=== PATIENT | male | born 1950 | race African-American/Black ===

== ENCOUNTER 2016-09-10 05:33 | Emergency (ER) | payer OTHER ==
[2016-09-10] MEDS ORDERED: oxyCODONE/Acetamin 5/325 MG* TAB PO ONE (06:45)
--- NOTE | 2016-09-10 06:45 | ED ---
Valentín Grant Janilya, scribed for Gaby Sage MD on 09/10/16 at 0555 . Lower Extremity - HPI Summary HPI Summary: A 66 y/[facility] w/ a gradual onset of constant hip pain starting couple months ago. Pt states he did have back pain which was spontaneously resolved. However, the hip pain persisted and started radiating to the legs. Also the pain started worsening couple weeks ago. This morning the pain was at its worst, hence his visit to the ED today. Severity rated 10/10. Pt denies fever, chills. PMHx stents. - History of Current Complaint Chief Complaint: EDHipPelvisInjury Stated Complaint: RIGHT HIP AND LEG PAIN Hx Obtained From: Patient Onset of Pain: Days Onset/Duration: Still Present Severity Initially: Moderate Severity Currently: Moderate Pain Intensity: 2 Pain Scale Used: 0-10 Numeric Timing: Constant Aggravating Factor(s): Nothing Alleviating Factor(s): Nothing - Allergies/Home Medications Allergies/Adverse Reactions: Allergies Allergy/AdvReac Type Severity Reaction Status Date / Time Ramipril Allergy Severe Coughing Verified 09/10/16 05:42 KAILA Inhibitors Allergy Unknown Unknown Verified 09/10/16 05:42 Reaction Details Metoprolol Allergy Unknown Unknown Verified 09/10/16 05:42 Reaction Details CARDIAC DRUGS Allergy Unknown Unknown Uncoded 09/10/16 05:42 Reaction Details PMH/Surg Hx/FS Hx/Imm Hx Previously Healthy: Yes Endocrine/Hematology History: Denies: Hx Anticoagulant Therapy, Hx Diabetes, Hx Thyroid Disease Cardiovascular History: Reports: Hx Hypercholesterolemia, Hx Hypertension Denies: Hx Congestive Heart Failure, Hx Deep Vein Thrombosis, Hx Myocardial Infarction, Hx Pacemaker/ICD Respiratory History: Denies: Hx Asthma, Hx Chronic Obstructive Pulmonary Disease (COPD), Hx Lung Cancer, Hx Pneumonia, Hx Pulmonary Embolism GI History: Denies: Hx Gall Bladder Disease, Hx Gastrointestinal Bleed, Hx Ulcer, Hx Urosepsis History: Denies: Hx Kidney Stones, Hx Renal Disease Musculoskeletal History: Reports: Hx Arthritis - spine and rt hip Sensory History: Denies: Hx Hearing Aid Neurological History: Denies: Hx Dementia, Hx Migraine, Hx Seizures, Hx Transient Ischemic Attacks (TIA) Psychiatric History: Denies: Hx Anxiety, Hx Depression, Hx Panic Disorder, Hx Schizophrenia, Hx Bipolar Disorder, Hx Substance Abuse - Cancer History Cancer Type, Location and Year: PROSTATE CA - Surgical History Surgery Procedure, Year, and Place: sinus surgury x 5 for drainage per pt. Open Heart Double Bypass. MANY STENTS - ONLY HAVE THE NAME OF A COUPLE OF THEM - INTEGRITY & XIENCE - SO AT THIS TIME UNTIL FURTHER INFORMATION IS OBTAINED PT CAN ONLY HAVE MRI ON A 1.5T SCANNER Infectious Disease History: No Infectious Disease History: Denies: Hx Hepatitis, Hx Human Immunodeficiency Virus (HIV), Traveled Outside the [place] in Last 30 Days - Family History Known Family History: Positive: Cardiac Disease, Diabetes Family History: NON CONTRIBUTORY - Social History Occupation: Retired Lives: With Family Alcohol Use: Occasionally Alcohol Amount: 2-3 glasses a day Hx Substance Use: No Substance Use Type: Reports: None Hx Tobacco Use: No Smoking Status (MU): Former Smoker Type: Cigarettes Have You Smoked in the Last Year: No Review of Systems Negative: Fever, Chills Positive: Arthralgia - leg pain, Myalgia - leg pain, Other - hip pain All Other Systems Reviewed And Are Negative: Yes Physical Exam Triage Information Reviewed: Yes Vital Signs On Initial Exam: Initial Vitals Temp Pulse Resp BP Pulse Ox 97.3 F 66 17 145/90 98 09/10/16 05:39 09/10/16 05:39 09/10/16 05:39 09/10/16 05:39 09/10/16 05:39 Vital Signs Reviewed: Yes Appearance: Positive: Well-Appearing, No Pain Distress Skin: Positive: Warm, Skin Color Reflects Adequate Perfusion Eyes: Positive: EOMI, KWABENA ENT: Positive: Pharynx normal, TMs normal Neck: Positive: Supple, Nontender Respiratory/Lung Sounds: Positive: Clear to Auscultation, Breath Sounds Present. Negative: Rales, Rhonchi, Wheezes Cardiovascular: Positive: RRR. Negative: Murmur, Rub, Other - no gallops Abdomen Description: Positive: Nontender, Soft. Negative: Distended, Guarding, Other: - no rebound Bowel Sounds: Positive: Present Musculoskeletal: Positive: Strength/ROM Intact, Other - Tenderness of hip with rotation. There is no tenderness of back.. Negative: Edema Left, Edema Right Neurological: Positive: Sensory/Motor Intact, Alert, Oriented to Person Place, Time, CN Intact II-III Psychiatric: Positive: Affect/Mood Appropriate Diagnostics - Vital Signs Vital Signs Temp Pulse Resp BP Pulse Ox 04/30/17 05:39 97.3 F 66 17 145/90 98 - Laboratory Lab Statement: Any lab studies that have been ordered have been reviewed, and results considered in the medical decision making process. - Radiology No standard instances Xray Interpretation: Positive (See Comments) Radiology Interpretation Completed By: ED Physician - arthritic changes to hip Lower Extremity Course/Dx - Diagnoses Provider Diagnoses: Hip arthritis Discharge - Discharge Plan Condition: Stable Disposition: HOME Referrals: Kana Teresa MD [Medical Doctor] - 2 Days Jennifer Sheridan MD [Primary Care Provider] - 2 Days The documentation as recorded by the Valentín ferguson Janilya accurately reflects the service I personally performed and the decisions made by me, Gaby Sage MD.
[2016-09-10 06:57] VITALS: BP 129/81
--- NOTE | 2016-09-10 09:41 | RAD ---
Indication: RIGHT hip pain with external rotation for 2 weeks. Initial plain 6 months ago. History of prostate carcinoma. Comparison: September 18, 2013 radiographs Technique: AP pelvis and AP and frog-leg lateral views RIGHT hip. Report: Chronic varus angulation deformity at the RIGHT femoral neck without change. No discrete cortical disruption or gross trabecular abnormality compared with the prior exam to indicate fracture of the RIGHT proximal femur or pelvis. Severe superior joint space narrowing at the RIGHT hip with associated osteophytosis and subchondral sclerosis and cystic change. Partial flattening of the articular surfaces. Unremarkable sacroiliac joints and pubic symphysis. Unremarkable soft tissue contours accounting for body habitus. IMPRESSION: Chronic varus deformity at the RIGHT femoral neck most consistent with sequela of previous fracture. 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
== END 2016-09-10 06:56 | disposition home or self-care (01) ==
LOC: ED 05:33
DX: M13.859 Other specified arthritis, unspecified hip (principal); M79.606 Pain in leg, unspecified
CPT/HCPCS: 99282; A9270-GY

== ENCOUNTER 2017-02-10 07:07 | Emergency (ER) | payer OTHER ==
[2017-02-10 07:22] VITALS: BP 110/70
--- NOTE | 2017-02-10 12:56 | UC ---
Olivia Grant Rebecca, scribed for Marion Doyle MD on 02/10/17 at 0729 . Upper Extremity HPI - HPI Summary HPI Summary: Pt is a 66 y/o M who presents to [facility] unaccompanied with a CC of R elbow swelling. Pt reports he woke up this morning with sudden onset of symptoms. Pain is currently moderate, ranked 7/10 and characterized as an ache and throbbing. Sx aggravated and alleviated by nothing. Denies fever and chills, CP , SOB, abd pain, N/V/D, dysuria and hematuria. No prior similar episodes of symptoms. Pt reports that he was carrying a case of water and groceries upstairs last night. Confirms that he has an orthopedic surgeon - Dr. Ho. - History of Current Complaint Chief Complaint: UCUpperExtremity Stated Complaint: SWOLLEN ELBOW Time Seen by Provider: 02/10/17 07:21 Hx Obtained From: Patient Onset/Duration: Still Present Severity Currently: Moderate Pain Intensity: 7 Pain Scale Used: 0-10 Numeric Location Of Pain: Is Discrete @ - R elbow Character: Aching, Throbbing Aggravating Factor(s): Nothing Alleviating Factor(s): Nothing Associated Signs And Symptoms: Positive: Swelling - R elbow - Allergies/Home Medications Allergies/Adverse Reactions: Allergies Allergy/AdvReac Type Severity Reaction Status Date / Time Ramipril Allergy Severe Coughing Verified 02/10/17 07:15 KAILA Inhibitors Allergy Unknown Unknown Verified 02/10/17 07:15 Reaction Details Metoprolol Allergy Unknown Unknown Verified 02/10/17 07:15 Reaction Details CARDIAC DRUGS Allergy Unknown Unknown Uncoded 02/10/17 07:15 Reaction Details PMH/Surg Hx/FS Hx/Imm Hx Cardiovascular History: Hypertension Cancer History: Prostate Cancer Other History Of: Negative For: Anticoagulant Therapy - Surgical History Surgical History: Yes Surgery Procedure, Year, and Place: sinus surgury x 5 for drainage per pt. Open Heart Double Bypass. MANY STENTS - ONLY HAVE THE NAME OF A COUPLE OF THEM - INTEGRITY & XIENCE - SO AT THIS TIME UNTIL FURTHER INFORMATION IS OBTAINED PT CAN ONLY HAVE MRI ON A 1.5T SCANNER - Family History Known Family History: Positive: Cardiac Disease, Diabetes - Social History Alcohol Use: Occasionally Alcohol Amount: 2-3 glasses a day Substance Use Type: None Smoking Status (MU): Former Smoker Type: Cigarettes Length of Time of Smoking/Using Tobacco: 1 PPD, 20+ YR Have You Smoked in the Last Year: No - Immunization History Most Recent Influenza Vaccination: UNSURE Most Recent Tetanus Shot: unk Most Recent Pneumonia Vaccination: within past 7 years Review of Systems Constitutional: Negative Skin: Negative Eyes: Negative ENT: Negative Respiratory: Negative Cardiovascular: Negative Gastrointestinal: Negative Genitourinary: Negative Motor: Negative Neurovascular: Negative Musculoskeletal: Other: - R elbow swelling Neurological: Negative Psychological: Negative All Other Systems Reviewed And Are Negative: Yes - Comments Additional Review of Systems Comments: NEGATIVE: Fever and chills, CP, SOB, abd pain, N/V/D, dysuria and hematuria. Physical Exam Triage Information Reviewed: Yes Appearance: Well-Appearing Vital Signs: Initial Vital Signs Temp 97.0 F 02/10/17 07:16 Pulse 91 02/10/17 07:16 Resp 16 02/10/17 07:16 BP 110/70 02/10/17 07:16 Pulse Ox 97 02/10/17 07:16 Vital Signs Reviewed: Yes Eye Exam: Normal Eyes: Positive: Conjunctiva Clear ENT: Positive: Normal ENT inspection Dental Exam: Normal Neck: Positive: Supple, Nontender, No Lymphadenopathy Respiratory: Positive: Lungs clear, Normal breath sounds, No respiratory distress, No accessory muscle use Cardiovascular: Positive: RRR, No Murmur, Pulses Normal Abdomen Description: Positive: Nontender, Soft Musculoskeletal: Positive: Other: - The right elbow has mild bursa swlling, is cool to touch with no erythema, no drainage, has FROM and strength is intact Neurological Exam: Normal Psychological Exam: Normal Skin Exam: Normal Upper Extremity Course/Dx - Course Course Of Treatment: Pt is a 66 y/o M who presents to [facility] unaccompanied with a CC of R elbow swelling upon waking up this morning. Pain is currently moderate , ranked 7/10 and characterized as an ache and throbbing. Denies fever and chills, CP, SOB, abd pain, N/V/D, dysuria and hematuria. No prior similar episodes of symptoms. Pt reports that he was carrying a case of water and groceries upstairs last night. Confirms that he has an orthopedic surgeon - Dr. Ho. Pt will be D/C to home with Dx of elbow bursitis and Rx for Keflex. He was advised to take a probitiotic and follow up with his orthopedic surgeon. He understands and agrees. Allergies noted. Patient medications reviewed this visit. - Differential Dx/Diagnosis Provider Diagnoses: Elbow bursitis Discharge - Discharge Plan Condition: Stable Disposition: HOME Prescriptions: Cephalexin CAP* [Keflex CAP*] 500 mg PO TID #30 cap Patient Education Materials: Elbow Bursitis (ED) Referrals: Jennifer Sheridan MD [Primary Care Provider] - Additional Instructions: Follow up with your orthopedic doctor in 3 or so days. Make sure to take a probiotic daily while on antibiotics to help prevent a potential complication of antibiotic use called c diff. Some well known brands that can be found OTC are florastor, align and BoardVitals. Make sure to complete the entire prescription unless advised otherwise by your health care provider The documentation as recorded by the Olivia ferguson Rebecca accurately reflects the service I personally performed and the decisions made by , Marion Doyle MD.
== END 2017-02-10 07:56 | disposition home or self-care (01) ==
LOC: UCEAST 07:07
DX: M70.31 Other bursitis of elbow, right elbow (principal); Y93.9 Activity, unspecified; I10 Essential (primary) hypertension; Z85.46 Personal history of malignant neoplasm of prostate; Z95.1 Presence of aortocoronary bypass graft; Z95.5 Presence of coronary angioplasty implant and graft; Z88.8 Allergy status to other drugs, medicaments and biological substances; Z87.891 Personal history of nicotine dependence
CPT/HCPCS: 99212; G0463

== ENCOUNTER 2017-02-15 21:53 | Emergency (ER) | payer OTHER ==
[2017-02-15 22:02] VITALS: BP 133/76
--- NOTE | 2017-02-15 22:22 | UC ---
Upper Extremity HPI - HPI Summary HPI Summary: Swollen right elbow---this is a chronic issue that he is seeing Dr. Vines tomorrow---patient is not sure if he should get additional treatment tonight for it or not - History of Current Complaint Chief Complaint: UCUpperExtremity Stated Complaint: ELBOW SWELLING Time Seen by Provider: 02/15/17 22:08 Hx Obtained From: Patient ?: No Onset/Duration: Gradual Onset, Lasting Weeks Severity Initially: Mild Severity Currently: Moderate Location Of Pain: Is Discrete @ - right elbow Alleviating Factor(s): Nothing Associated Signs And Symptoms: Positive: Swelling. Negative: Redness, Fever, Weakness Related History: Dominant Hand Right - Allergies/Home Medications Allergies/Adverse Reactions: Allergies Allergy/AdvReac Type Severity Reaction Status Date / Time Ramipril Allergy Severe Coughing Verified 02/15/17 22:02 KAILA Inhibitors Allergy Unknown Unknown Verified 02/15/17 22:02 Reaction Details Metoprolol Allergy Unknown Unknown Verified 02/15/17 22:02 Reaction Details CARDIAC DRUGS Allergy Unknown Unknown Uncoded 02/10/17 07:15 Reaction Details PMH/Surg Hx/FS Hx/Imm Hx Previously Healthy: No Cardiovascular History: Hypertension Other History Of: Negative For: Anticoagulant Therapy - Surgical History Surgical History: Yes Surgery Procedure, Year, and Place: sinus surgury x 5 for drainage per pt. Open Heart Double Bypass. MANY STENTS - ONLY HAVE THE NAME OF A COUPLE OF THEM - INTEGRITY & XIENCE - SO AT THIS TIME UNTIL FURTHER INFORMATION IS OBTAINED PT CAN ONLY HAVE MRI ON A 1.5T SCANNER - Family History Known Family History: Positive: Cardiac Disease, Diabetes - Social History Occupation: Disabled Lives: With Family Alcohol Use: Occasionally Alcohol Amount: 2-3 glasses a day Substance Use Type: None Smoking Status (MU): Former Smoker Type: Cigarettes Length of Time of Smoking/Using Tobacco: 1 PPD, 20+ YR Have You Smoked in the Last Year: No - Immunization History Most Recent Influenza Vaccination: UNSURE Most Recent Tetanus Shot: unk Most Recent Pneumonia Vaccination: within past 7 years Review of Systems Constitutional: Negative Skin: Negative Eyes: Negative ENT: Negative Respiratory: Negative Cardiovascular: Negative Gastrointestinal: Negative Genitourinary: Negative Motor: Negative Neurovascular: Negative Musculoskeletal: Arthralgia - right elbow---swollen bursa Neurological: Negative Psychological: Negative Is Patient Immunocompromised?: No All Other Systems Reviewed And Are Negative: Yes Physical Exam Triage Information Reviewed: Yes Appearance: Well-Appearing, No Pain Distress, Well-Nourished Vital Signs: Initial Vital Signs Temp 97.1 F 02/15/17 21:58 Pulse 70 02/15/17 21:58 Resp 16 02/15/17 21:58 BP 133/76 02/15/17 21:58 Pulse Ox 97 02/15/17 21:58 Vital Signs Reviewed: Yes Eye Exam: Normal Eyes: Positive: Conjunctiva Clear ENT Exam: Normal ENT: Positive: Normal ENT inspection, Hearing grossly normal. Negative: Nasal congestion, Nasal drainage, Trismus, Muffled/hoarse voice Dental Exam: Normal Neck exam: Normal Neck: Positive: Supple, Nontender Respiratory Exam: Normal Respiratory: Positive: Chest non-tender, No respiratory distress, No accessory muscle use Cardiovascular Exam: Normal Cardiovascular: Positive: RRR, Pulses Normal, Brisk Capillary Refill Musculoskeletal Exam: Normal Musculoskeletal: Positive: Strength Intact, ROM Intact, Edema @ Neurological Exam: Normal Neurological: Positive: Alert, Muscle Tone Normal Psychological Exam: Normal Skin Exam: Normal Upper Extremity Course/Dx - Course Course Of Treatment: kaila wrap, follow with Dr. Vines 02/16/17 as planned - Differential Dx/Diagnosis Differential Diagnosis/HQI/PQRI: Bursitis, Contusion, Strain, Sprain Provider Diagnoses: CHronic Right olec. Bursititis Discharge - Discharge Plan Condition: Stable Disposition: HOME Patient Education Materials: Elbow Bursitis (ED) Referrals: Cedrick Vines MD [Medical Doctor] - 1 Day Jennifer Sheridan MD [Primary Care Provider] - Additional Instructions: Follow with Dr. Vines tomorrow 02/16/17 as planned
== END 2017-02-15 22:29 | disposition home or self-care (01) ==
LOC: UCEAST 21:53
DX: M70.21 Olecranon bursitis, right elbow (principal); I10 Essential (primary) hypertension; Z87.891 Personal history of nicotine dependence
CPT/HCPCS: 99212; G0463

== ENCOUNTER 2017-12-19 07:25 | Emergency (ER) | payer MEDICARE ==
[2017-12-19 07:32] VITALS: BP 122/72
--- NOTE | 2017-12-19 08:14 | UC ---
Knee Pain HPI - HPI Summary HPI Summary: This is phyllis Gar documenting for the attending Dr. Chris MD. The patient is a 67 year old M with a chief complaint of pain in his L knee. HE walks with a cane for his back pain but is ambulating relatively normally during todays visit. He says he has sustained no trauma to the knee and denies past knee surgery but it feels like there is fluid in it. He said the pain started two days ago when he heard a swishing sound in his knee while he was on a riding lawnmower. The pain is only in his knee, and only hurts in the posterior region. There is more pain upon knee flexion, and sensitivity in the posterior region of the knee, but he does not feel unstable, and there is no knee locking. The pain is rated at a 9/10, and described as an achey, burning, sharp pain. He put an ice pack on it last night and it relieved some pain, and says he is urinating more often than normal. The pt is on a water pill, and has had something like this before in his elbow, where he had fluid drained and wrapped it with an KAILA bandage. Pt denies Hx of blood clots, as well as fever or chills symptoms. He has taken ibuprofen for the pain with little success. - History of Current Complaint Chief Complaint: UCLowerExtremity Stated Complaint: L KNEE PAIN Time Seen by Provider: 12/19/17 07:45 Hx Obtained From: Patient Onset/Duration: Lasting Days Severity Initially: Moderate Severity Currently: Moderate Pain Intensity: 9 Pain Scale Used: 0-10 Numeric Character: Sharp, Aching, Burning Aggravating Factor(s): Movement Alleviating Factor(s): Rest, Cold Associated Signs And Symptoms: Positive: Swelling - Allergies/Home Medications Allergies/Adverse Reactions: Allergies Allergy/AdvReac Type Severity Reaction Status Date / Time ramipril Allergy Mild Coughing Verified 12/19/17 07:36 KAILA Inhibitors Allergy unk Verified 12/19/17 07:36 metoprolol Allergy unk Verified 12/19/17 07:36 PMH/Surg Hx/FS Hx/Imm Hx Cardiovascular History: Hypertension, Other - Cardiac disorders, Hx of stents Other Cardiovascular History: . Other History Of: Negative For: Anticoagulant Therapy - Surgical History Surgical History: Yes Surgery Procedure, Year, and Place: sinus surgury x 5 for drainage per pt. Open Heart Double Bypass. MANY STENTS - ONLY HAVE THE NAME OF A COUPLE OF THEM - INTEGRITY & XIENCE - SO AT THIS TIME UNTIL FURTHER INFORMATION IS OBTAINED PT CAN ONLY HAVE MRI ON A 1.5T SCANNER - Family History Known Family History: Positive: Cardiac Disease, Diabetes - Social History Alcohol Use: Occasionally Alcohol Amount: 2-3 glasses a day Substance Use Type: None Smoking Status (MU): Former Smoker Type: Cigarettes Length of Time of Smoking/Using Tobacco: 1 PPD, 20+ YR Have You Smoked in the Last Year: No - Immunization History Most Recent Influenza Vaccination: UNSURE Most Recent Tetanus Shot: unk Most Recent Pneumonia Vaccination: within past 7 years Review of Systems Constitutional: Other - negative fever, chills Genitourinary: Frequency - more than normal last night Musculoskeletal: Edema - L knee, Other: - L knee pain All Other Systems Reviewed And Are Negative: Yes Physical Exam - Summary Physical Exam Summary: General: well-appearing, no pain distress Skin: warm, color reflects adequate perfusion, dry Head: normal Eyes: EOMI, KWABENA ENT: normal Neck: supple, nontender Respiratory: CTA, breath sounds present Cardiovascular: RRR Abdomen: soft, nontender Bowel: present Musculoskeletal:strength/ROM mostly intact, L knee fusion with edema in the popliteal, stable to exam, negative McMurrays, no calf tenderness, no inner thigh tenderness Neurological: sensory/motor intact, A&O x3 Psychological: affect/mood appropriate Triage Information Reviewed: Yes Vital Signs: Initial Vital Signs Temp 97 F 12/19/17 07:29 Pulse 64 12/19/17 07:29 Resp 16 12/19/17 07:29 BP 122/72 12/19/17 07:29 Pulse Ox 99 12/19/17 07:29 Diagnostics - Radiology knee x-ray Xray Interpretation: Positive (See Comments) - Calcification along the quadriceps tendon and infrapatellar tendon with a suprapatellar effusion. Dr. Perez has reviewed this report. Radiology Interpretation Completed By: Radiologist Re-Evaluation - Re-Evaluation Discussed x-ray results with patient. Re-Evaluation Time: 09:15 Change: Unchanged Knee Pain Course/Dx - Course Course Of Treatment: KNEE STABLE TO EXAM. NO EVIDENCE OF INFECTIN AT THIS TIME. F/U PMD OR ORTHOPEDICS; RECHECK SOONER IF WORSE. - Differential Dx/Diagnosis Provider Diagnoses: LEFT KNEE EFFUSION AND PAIN Discharge - Sign-Out/Discharge Documenting (check all that apply): Patient Departure - Discharge Plan Condition: Stable Disposition: HOME Patient Education Materials: Osteoarthritis (ED), Swollen Knee Joint (ED) Referrals: Jennifer Sheridan MD [Primary Care Provider] - Additional Instructions: FOLLOW UP WITH YOUR DOCTOR IF NOT COMPLETELY IMPROVED. REST, ICE AND ELEVATE YOUR SWOLLEN KNEE. GET RECHECKED FOR ANY WORSENING OF YOUR CONDITION; PAIN, FEVER, YOU FEEL ILL OR QUESTIONS OR CONCERNS. - Billing Disposition and Condition Condition: STABLE Disposition: Home Attestation Statement Scribe Attestation: This is phyllis Gar documenting for the attending Dr. Chris MD. User Type: Provider with Scribe Provider Attestation: The documentation recorded by the scribe accurately reflects the service I personally performed and the decisions made by me.
--- NOTE | 2017-12-19 09:00 | RAD ---
Indication: Left knee pain and swelling. 4 views of left knee demonstrates joint effusion. Quadriceps and infrapatellar tendon calcifications are noted. Degenerative changes of the patellofemoral joint is noted. IMPRESSION: Calcification along the quadriceps tendon and infrapatellar tendon with a suprapatellar effusion.
== END 2017-12-19 09:20 | disposition home or self-care (01) ==
LOC: UCEAST 07:25
DX: M25.462 Effusion, left knee (principal); M25.562 Pain in left knee; M65.852 Other synovitis and tenosynovitis, left thigh; Z95.5 Presence of coronary angioplasty implant and graft; Z88.8 Allergy status to other drugs, medicaments and biological substances; Z82.49 Family history of ischemic heart disease and other diseases of the circulatory system; Z83.3 Family history of diabetes mellitus; Z87.891 Personal history of nicotine dependence
CPT/HCPCS: 99211; G0463

== ENCOUNTER 2018-01-28 09:34 | Emergency (ER) | payer MEDICARE ==
[2018-01-28 10:03] VITALS: BP 142/91
--- NOTE | 2018-01-28 10:17 | UC ---
Throat Pain/Nasal Sánchez HPI - HPI Summary HPI Summary: 67 yo male presents with sinus pain/pressure/congestion, post nasal drip, and dry cough for the last 1.5-2 weeks. He tells me that his symptoms started in his sinuses, but have progressed into his chest. He has not been taking anything OTC. Denies fever, chills, sore throat, SOB, rash. - History of Current Complaint Chief Complaint: UCRespiratory Stated Complaint: RESP COMPLAINT Hx Obtained From: Patient Onset/Duration: Gradual Onset Pain Intensity: 0 Cough: Nonproductive - Allergies/Home Medications Allergies/Adverse Reactions: Allergies Allergy/AdvReac Type Severity Reaction Status Date / Time ramipril Allergy Mild Coughing Verified 01/28/18 10:02 KAILA Inhibitors Allergy unk Verified 01/28/18 10:02 metoprolol Allergy unk Verified 01/28/18 10:02 PMH/Surg Hx/FS Hx/Imm Hx Endocrine History: Dyslipidemia Cardiovascular History: Cardiac Disease, Hypertension Other History Of: Negative For: Anticoagulant Therapy - Surgical History Surgical History: Yes Surgery Procedure, Year, and Place: sinus surgury x 5 for drainage per pt. Open Heart Double Bypass. MANY STENTS - ONLY HAVE THE NAME OF A COUPLE OF THEM - INTEGRITY & XIENCE - SO AT THIS TIME UNTIL FURTHER INFORMATION IS OBTAINED PT CAN ONLY HAVE MRI ON A 1.5T SCANNER - Family History Known Family History: Positive: Cardiac Disease, Diabetes - Social History Occupation: Retired Lives: With Family Alcohol Use: Daily Alcohol Amount: 2 per day Substance Use Type: None Smoking Status (MU): Former Smoker Type: Cigarettes Length of Time of Smoking/Using Tobacco: 1 PPD, 20+ YR Have You Smoked in the Last Year: No - Immunization History Most Recent Influenza Vaccination: UNSURE Most Recent Tetanus Shot: unk Most Recent Pneumonia Vaccination: within past 7 years Review of Systems Constitutional: Negative Skin: Negative Eyes: Negative ENT: Nasal Discharge, Sinus Congestion, Sinus Pain/Tenderness Respiratory: Cough Cardiovascular: Negative Gastrointestinal: Negative Neurovascular: Negative Neurological: Negative Psychological: Negative All Other Systems Reviewed And Are Negative: Yes Physical Exam - Summary Physical Exam Summary: GENERAL: NAD. WDWN. No pain distress. SKIN: No rashes, sores, lesions, or open wounds. HEENT: Head: AT/NC Eyes: EOM intact. Conjunctiva clear without inflammation or discharge. Ears: Hearing grossly normal. TMs intact, no bulging, erythema, or edema. Nose: Nasal mucosa mildly swollen and erythematous with yellow discharge. TTP maxillary and frontal sinus. Throat: Posterior oropharynx without exudates, erythema, or tonsillar enlargement. Uvula midline. NECK: Supple. Nontender. No lymphadenopathy. CHEST: CTAB. No accessory muscle use. Breathing comfortably and in no distress. CV: Pulses intact. NEURO: Alert. PSYCH: Age appropriate behavior. Triage Information Reviewed: Yes Vital Signs: Initial Vital Signs Temp 97.0 F 01/28/18 09:58 Pulse 56 01/28/18 09:58 Resp 18 01/28/18 09:58 BP 142/91 01/28/18 09:58 Pulse Ox 96 01/28/18 09:58 Vital Signs Reviewed: Yes Throat Pain/Nasal Course/Dx - Course Course Of Treatment: Sinusitis - Differential Dx/Diagnosis Provider Diagnoses: Sinusitis Discharge - Sign-Out/Discharge Documenting (check all that apply): Patient Departure All imaging exams completed and their final reports reviewed: No Studies - Discharge Plan Condition: Stable Disposition: HOME Prescriptions: Amoxicillin/Clavulanate TAB* [Augmentin TAB 875*] 875 mg PO BID #20 tab Patient Education Materials: Sinusitis (ED) Referrals: Jennifer Sheridan MD [Primary Care Provider] - Additional Instructions: If you develop a fever, shortness of breath, chest pain, new or worsening symptoms - please call your PCP or go to the ED. Your blood pressure was mildly elevated at todays visit. Please see your primary provider within 4 weeks for recheck and re-evaluation. - Billing Disposition and Condition Condition: STABLE Disposition: Home - Attestation Statements Provider Attestation: Per institutional requirements, I have reviewed the chart, however, I was not consulted specifically or made aware of this patient by the midlevel provider. I did not personally evaluate, interact with , or disposition this patient.
--- NOTE | 2018-01-29 16:12 | UC ---
- Progress Note Progress Note: Patient called clinic reporting he was seen at this facility yesterday and started on Augmentin for a sinus infection but is having a lot of GI side effects from the Augmentin including some diarrhea. He is requesting a change in his antibiotic. Chart reviewed. Will stop Augmentin and prescribe doxycycline 100 mg BID x 7 days. Patient to be advised of change in antibiotic, educated that he may still have some GI side effects with new antibiotic, recommend yogurt or probiotic while on antibiotic, and sun precautions. Discharge - Sign-Out/Discharge Documenting (check all that apply): Patient Departure All imaging exams completed and their final reports reviewed: No Studies - Discharge Plan Condition: Stable Disposition: HOME Prescriptions: Amoxicillin/Clavulanate TAB* [Augmentin TAB 875*] 875 mg PO BID #20 tab Patient Education Materials: Sinusitis (ED) Referrals: Jennifer Sheridan MD [Primary Care Provider] - Additional Instructions: If you develop a fever, shortness of breath, chest pain, new or worsening symptoms - please call your PCP or go to the ED. Your blood pressure was mildly elevated at todays visit. Please see your primary provider within 4 weeks for recheck and re-evaluation. - Billing Disposition and Condition Condition: STABLE Disposition: Home
== END 2018-01-28 10:37 | disposition home or self-care (01) ==
LOC: UCEAST 09:34
CPT/HCPCS: 99212; G0463

== ENCOUNTER 2018-07-05 07:11 | Emergency (ER) | payer MEDICARE, MEDICAID ==
[2018-07-05 07:22] VITALS: BP 134/90
--- NOTE | 2018-07-05 07:49 | UC ---
Shoulder Pain HPI - HPI Summary HPI Summary: 3-4 DAYS OF RIGHT NECK PAIN THAT STARTED AFTER HE ABRUPTLY JUMPED OUT OF BED. NO TRAUMA. PAIN IS WORSE WHEN HE ROTATES HIS HEAD. HAS FULL RANGE OF MOTION. NO SWELLING. NO PREVIOUS RIGHT SHOULDER INJURY. DENIES CHEST PAIN, SHORTNESS OF BREATH, NAUSEA, SWEATS. NO LEFT-SIDED SHOULDER PAIN. ALSO COMPLAINS OF OVER A WEEK OF COUGH, CONGESTION, SINUS PRESSURE AND FATIGUE. NO FEVER, NAUSEA/VOMITING. - History of Current Complaint Chief Complaint: UCUpperExtremity Stated Complaint: NECK/SHOULDER PAIN Time Seen by Provider: 07/05/18 07:29 Hx Obtained From: Patient Onset/Duration: Gradual Onset, Lasting Days, Still Present Timing: Constant Severity Initially: Moderate Severity Currently: Moderate Location Of Pain: Is Discrete @ - RIGHT NECK/UPPER SHOULDER Pain Intensity: 6 Pain Scale Used: 0-10 Numeric Character: Sharp Aggravating Factor(s): Movement Alleviating Factor(s): Rest Associated Signs And Symptoms: Negative: Swelling, Redness, Bruising, Numbness/ Tingling - Allergies/Home Medications Allergies/Adverse Reactions: Allergies Allergy/AdvReac Type Severity Reaction Status Date / Time ramipril Allergy Mild Coughing Verified 07/05/18 07:22 KAILA Inhibitors Allergy unk Verified 07/05/18 07:22 metoprolol Allergy unk Verified 07/05/18 07:22 Home Medications: Home Medications HYDROcodone/ACETAMIN 5-325 MG* [[place] 5-325 TAB*] 1 tab PO Q4H PRN 07/05/18 [ History Confirmed 07/05/18] PMH/Surg Hx/FS Hx/Imm Hx Cardiovascular History: Cardiac Disease - STENTS, Hypertension Cancer History: Prostate Cancer Other History Of: Negative For: Anticoagulant Therapy - Surgical History Surgical History: Yes Surgery Procedure, Year, and Place: sinus surgury x 5 for drainage per pt. Open Heart Double Bypass. MANY STENTS - ONLY HAVE THE NAME OF A COUPLE OF THEM - INTEGRITY & XIENCE - SO AT THIS TIME UNTIL FURTHER INFORMATION IS OBTAINED PT CAN ONLY HAVE MRI ON A 1.5T SCANNER - Family History Known Family History: Positive: Cardiac Disease, Diabetes - Social History Alcohol Use: Occasionally Alcohol Amount: 2 per day Substance Use Type: None Smoking Status (MU): Former Smoker Type: Cigarettes Length of Time of Smoking/Using Tobacco: 1 PPD, 20+ YR Have You Smoked in the Last Year: No - Immunization History Most Recent Influenza Vaccination: UNSURE Most Recent Tetanus Shot: unk Most Recent Pneumonia Vaccination: within past 7 years Review of Systems All Other Systems Reviewed And Are Negative: Yes Constitutional: Positive: Negative ENT: Positive: Nasal Discharge, Sinus Congestion Respiratory: Positive: Cough Cardiovascular: Positive: Negative Gastrointestinal: Positive: Negative Musculoskeletal: Positive: Myalgia Physical Exam Triage Information Reviewed: Yes Appearance: Well-Appearing, No Pain Distress, Well-Nourished Vital Signs: Initial Vital Signs Temp 96.8 F 07/05/18 07:17 Pulse 65 07/05/18 07:17 Resp 16 07/05/18 07:17 BP 134/90 07/05/18 07:17 Pulse Ox 98 07/05/18 07:17 Vital Signs Reviewed: Yes Eyes: Positive: Conjunctiva Clear ENT: Positive: Hearing grossly normal, Pharynx normal, TMs normal Neck: Positive: Supple, Nontender, No Lymphadenopathy Respiratory Exam: Normal Cardiovascular Exam: Normal Abdomen Description: Positive: Soft Musculoskeletal: Positive: ROM Intact, No Edema, Other: - TTP RIGHT TRAPEZIUS MUSCLE Neurological: Positive: Alert Psychological: Positive: Age Appropriate Behavior Skin: Negative: Rashes Shoulder Course/Dx - Differential Dx/Diagnosis Provider Diagnosis: Cervical strain, acute, Upper respiratory infection Discharge - Sign-Out/Discharge Documenting (check all that apply): Patient Departure All imaging exams completed and their final reports reviewed: No Studies - Discharge Plan Condition: Stable Disposition: HOME Prescriptions: Azithromycin 500 mg PO DAILY #5 tab Patient Education Materials: Upper Respiratory Infection (ED) Referrals: Jennifer Sheridan MD [Primary Care Provider] - Additional Instructions: YOUR SYMPTOMS SHOULD IMPROVE SIGNIFICANTLY OVER THE NEXT 1-2 WEEKS. IF YOU DO NOT IMPROVE EXPECTED FOLLOW-UP WITH YOUR PCP OR ORTHO. YOU MAY BENEFIT FROM IMAGING AT THAT TIME. REST. TAKE MUSCLE RELAXER BEFORE BED. BE SURE TO GO THROUGH SLOW RANGE OF MOTION AND STRETCHING EXERCISES DAILY YOU ARE ABLE TO PREVENT STIFFENING UP AND MAKING THE DISCOMFORT WORSE. YOUR RESPIRATORY SYMPTOMS MAY BE VIRALLY MEDIATED BUT GIVEN THE LENGTH OF TIME YOU HAVE BEEN ILL WE WILL COVER YOU WITH ANTIBIOTICS. IF YOU START THE MEDICINE BE SURE TO TAKE IT FOR THE FULL COURSE. REST, HYDRATE, OTC MEDS NEEDED. SEEK FOLLOW-UP WITH YOUR PCP IF YOU ARE NOT IMPROVING OVER THE NEXT 1-2 WEEKS. - Billing Disposition and Condition Condition: STABLE Disposition: Home
== END 2018-07-05 07:55 | disposition home or self-care (01) ==
LOC: UCEAST 07:11
DX: S16.1XXA Strain of muscle, fascia and tendon at neck level, initial encounter (principal); J06.9 Acute upper respiratory infection, unspecified; I10 Essential (primary) hypertension; Z88.8 Allergy status to other drugs, medicaments and biological substances; Y92.9 Unspecified place or not applicable
CPT/HCPCS: 99212; G0463

== ENCOUNTER 2018-09-01 19:02 | Emergency (ER) | payer MEDICARE, MEDICAID ==
[2018-09-01 19:11] VITALS: BP 132/82
[2018-09-01] MEDS ORDERED: Hydrocortisone 1% CREAM* 30 GM TUBE TOPICAL ONE (19:20)
--- NOTE | 2018-09-01 19:25 | UC ---
Skin Complaint HPI - HPI Summary HPI Summary: stinging rash left side of neck- after spraying on cologne that made him itch he has washed with both alcohol and peroxide which has not helped---raised erythemic areas with out dematome distribution noted on left side of neck - History of Current Complaint Chief Complaint: UCSkin Time Seen by Provider: 09/01/18 19:05 Stated Complaint: RASH Hx Obtained From: Patient Onset/Duration: Sudden Onset, Lasting Days Timing: Constant Pain Intensity: 7 Pain Scale Used: 0-10 Numeric Location: Discrete Character: Hives, Redness, Raised Aggravating Factor(s): Nothing Alleviating Factor(s): Nothing Associated Signs & Symptoms: Positive: Rash - Allergy/Home Medications Allergies/Adverse Reactions: Allergies Allergy/AdvReac Type Severity Reaction Status Date / Time ramipril Allergy Mild Coughing Verified 09/01/18 19:11 KAILA Inhibitors Allergy unk Verified 09/01/18 19:11 metoprolol Allergy unk Verified 09/01/18 19:11 PMH/Surg Hx/FS Hx/Imm Hx Previously Healthy: No Endocrine History: Dyslipidemia Cardiovascular History: Cardiac Disease GI/ History: Gastroesophageal Reflux Psychological History: Other Other Psychological History: insomnia Other History Of: Negative For: Anticoagulant Therapy - Surgical History Surgical History: Yes Surgery Procedure, Year, and Place: sinus surgery x 5 for drainage per pt. Open Heart Double Bypass. MANY STENTS - ONLY HAVE THE NAME OF A COUPLE OF THEM - INTEGRITY & XIENCE - SO AT THIS TIME UNTIL FURTHER INFORMATION IS OBTAINED PT CAN ONLY HAVE MRI ON A 1.5T SCANNER - Family History Known Family History: Positive: Cardiac Disease, Diabetes - Social History Occupation: Retired Lives: With Family Alcohol Use: Occasionally Alcohol Amount: 2 per day Substance Use Type: None Smoking Status (MU): Former Smoker Type: Cigarettes Length of Time of Smoking/Using Tobacco: 1 PPD, 20+ YR Have You Smoked in the Last Year: No - Immunization History Most Recent Influenza Vaccination: UNSURE Most Recent Tetanus Shot: unk Most Recent Pneumonia Vaccination: within past 7 years Review of Systems All Other Systems Reviewed And Are Negative: Yes Constitutional: Positive: Negative Skin: Positive: Rash Eyes: Positive: Negative ENT: Positive: Negative Respiratory: Positive: Negative Cardiovascular: Positive: Negative Gastrointestinal: Positive: Negative Genitourinary: Positive: Negative Motor: Positive: Negative Neurovascular: Positive: Negative Musculoskeletal: Positive: Negative Neurological: Positive: Negative Psychological: Positive: Negative Is Patient Immunocompromised?: No Physical Exam Triage Information Reviewed: Yes Appearance: Well-Appearing, Well-Nourished, Obese Vital Signs: Initial Vital Signs Temp 97.6 F 09/01/18 19:04 Pulse 64 09/01/18 19:04 Resp 20 09/01/18 19:04 BP 132/82 09/01/18 19:04 Pulse Ox 97 09/01/18 19:04 Vital Signs Reviewed: Yes Eye Exam: Normal Eyes: Positive: Conjunctiva Clear ENT Exam: Normal ENT: Positive: Normal ENT inspection, Hearing grossly normal. Negative: Trismus , Muffled voice, Hoarse voice Neck exam: Normal Neck: Positive: Supple, Nontender Respiratory Exam: Normal Respiratory: Positive: Chest non-tender, No respiratory distress, No accessory muscle use Cardiovascular Exam: Normal Cardiovascular: Positive: RRR, Pulses Normal, Brisk Capillary Refill Musculoskeletal Exam: Normal Musculoskeletal: Positive: Strength Intact, ROM Intact Neurological Exam: Normal Neurological: Positive: Alert, Muscle Tone Normal Psychological Exam: Normal Skin Exam: Other Skin: Positive: Other - raised red tender areas on side of neck and top of shoulder Course/Dx - Course Course Of Treatment: mild soap and water wash, hydrocortisone , follow with pcp - Diagnoses Provider Diagnosis: Acute dermatitis Discharge - Sign-Out/Discharge Documenting (check all that apply): Patient Departure All imaging exams completed and their final reports reviewed: No Studies - Discharge Plan Condition: Stable Disposition: HOME Prescriptions: Fluocinonide 0.05% CM (NF) [Lidex 0.05% CREAM (NF)] 1 applic TOPICAL BID #1 tube Patient Education Materials: Hydrocortisone (On the skin), Acute Rash (ED) Referrals: Jennifer Sheridan MD [Primary Care Provider] - If Needed - Billing Disposition and Condition Condition: STABLE Disposition: Home
== END 2018-09-01 19:35 | disposition home or self-care (01) ==
LOC: UCEAST 19:02
DX: L30.9 Dermatitis, unspecified (principal); E78.5 Hyperlipidemia, unspecified; I51.9 Heart disease, unspecified; K21.9 Gastro-esophageal reflux disease without esophagitis; Z95.1 Presence of aortocoronary bypass graft; Z95.5 Presence of coronary angioplasty implant and graft; Z88.8 Allergy status to other drugs, medicaments and biological substances; Z87.891 Personal history of nicotine dependence
CPT/HCPCS: 99212; A9270-GY; G0463

== ENCOUNTER 2018-10-10 07:02 | Emergency (ER) | payer MEDICARE, MEDICAID ==
[2018-10-10 07:12] VITALS: BP 155/98
--- NOTE | 2018-10-10 07:25 | UC ---
Throat Pain/Nasal Sánchez HPI - HPI Summary HPI Summary: 68-year-old male comes in with a chief complaint of sinus drainage that is green and headaches for 4-5 days. Has not measured any fevers. He has had some chills. [id number] medications help some with the symptoms but then the symptoms return. Patient reports this kind of headache associated with the rhinorrhea makes him believe he has a sinus infection. Patient reports having had sinus surgery in the past for recurrent sinus infections. Patient reports he does have an ENT. No complaint of shortness of breath or chest congestion. - History of Current Complaint Chief Complaint: UCHeadache Stated Complaint: HEADACHE Time Seen by Provider: 10/10/18 07:14 Pain Intensity: 2 - Allergies/Home Medications Allergies/Adverse Reactions: Allergies Allergy/AdvReac Type Severity Reaction Status Date / Time ramipril Allergy Mild Coughing Verified 10/10/18 07:13 KAILA Inhibitors Allergy unk Verified 10/10/18 07:13 metoprolol Allergy unk Verified 10/10/18 07:13 PMH/Surg Hx/FS Hx/Imm Hx Previously Healthy: Yes - BPH Endocrine History: Dyslipidemia Cardiovascular History: Cardiac Disease, Hypertension Other History Of: Negative For: Anticoagulant Therapy - Surgical History Surgical History: Yes Surgery Procedure, Year, and Place: sinus surgery x 5 for drainage per pt. Open Heart Double Bypass. MANY STENTS - ONLY HAVE THE NAME OF A COUPLE OF THEM - INTEGRITY & XIENCE - SO AT THIS TIME UNTIL FURTHER INFORMATION IS OBTAINED PT CAN ONLY HAVE MRI ON A 1.5T SCANNER - Family History Known Family History: Positive: Cardiac Disease, Diabetes - Social History Alcohol Use: Occasionally Alcohol Amount: 2 per day Substance Use Type: None Smoking Status (MU): Former Smoker Type: Cigarettes Length of Time of Smoking/Using Tobacco: 1 PPD, 20+ YR Have You Smoked in the Last Year: No - Immunization History Most Recent Influenza Vaccination: UNSURE Most Recent Tetanus Shot: unk Most Recent Pneumonia Vaccination: within past 7 years Review of Systems All Other Systems Reviewed And Are Negative: Yes Constitutional: Positive: Chills Skin: Positive: Negative Eyes: Positive: Negative ENT: Positive: Nasal Discharge, Sinus Congestion, Sinus Pain/Tenderness Respiratory: Positive: Negative Cardiovascular: Positive: Negative Gastrointestinal: Positive: Negative Motor: Positive: Negative Neurovascular: Positive: Negative Musculoskeletal: Positive: Negative Neurological: Positive: Negative Psychological: Positive: Negative Is Patient Immunocompromised?: No Physical Exam Triage Information Reviewed: Yes Appearance: Well-Appearing, No Pain Distress, Well-Nourished Vital Signs: Initial Vital Signs Temp 97.5 F 10/10/18 07:08 Pulse 64 10/10/18 07:08 Resp 16 10/10/18 07:08 BP 155/98 10/10/18 07:08 Pulse Ox 96 10/10/18 07:08 Vital Signs Reviewed: Yes Eye Exam: Normal Eyes: Positive: Conjunctiva Clear ENT: Positive: Pharynx normal, Nasal congestion, TMs normal Neck: Positive: Supple Respiratory: Positive: Lungs clear, Normal breath sounds, No respiratory distress Cardiovascular: Positive: RRR Musculoskeletal Exam: Normal Musculoskeletal: Positive: Strength Intact, ROM Intact Neurological Exam: Normal Neurological: Positive: Alert, Muscle Tone Normal Psychological Exam: Normal Psychological: Positive: Age Appropriate Behavior Skin Exam: Normal Throat Pain/Nasal Course/Dx - Course Course Of Treatment: THE PATIENT PREFERS TO BE ON ANTIBIOTICS AT THIS TIME. WE DISCUSSED F/U WITH ENT FOR RECURRENT SINUSITIS AND HEADACHES. - Differential Dx/Diagnosis Provider Diagnosis: Sinusitis, Headache Discharge - Sign-Out/Discharge Documenting (check all that apply): Patient Departure All imaging exams completed and their final reports reviewed: No Studies - Discharge Plan Condition: Stable Disposition: HOME Prescriptions: Amoxicillin/Clavulanate TAB* [Augmentin TAB 875*] 875 mg PO BID #20 tab Patient Education Materials: Sinusitis (ED), Acute Headache (ED) Referrals: Jennifer Sheridan MD [Primary Care Provider] - Martin Sanford MD [Medical Doctor] - Additional Instructions: FOLLOW UP WITH YOUR ENT, DR SANFORD. GET RECHECKED SOONER IF YOUR CONDITION WORSENS OR ANY QUESTIONS OR CONCERNS. - Billing Disposition and Condition Condition: STABLE Disposition: Home
== END 2018-10-10 07:30 | disposition home or self-care (01) ==
LOC: UCEAST 07:02
DX: R51 Headache (principal); J32.9 Chronic sinusitis, unspecified; I10 Essential (primary) hypertension; Z88.8 Allergy status to other drugs, medicaments and biological substances; Z87.891 Personal history of nicotine dependence
CPT/HCPCS: 99212; G0463

== ENCOUNTER 2019-08-08 15:50 | Inpatient (IN) | payer MEDICARE, MEDICAID ==
[2019-08-08] MEDS ORDERED: Aspirin 81 mg CHEW TAB* 81 MG TAB.CHEW PO ONE (16:18)
[2019-08-08 16:28] LABS: ABS Eosinophils 0.1 10^3/ul (0-0.6); ABS Lymphocytes 1.2 10^3/ul (1.0-4.8); ABS Monocytes 0.8 10^3/ul (0-0.8); ABS Neutrophils 2.8 10^3/ul (1.5-7.7); Eosinophil % 2.5 %; Hematocrit 44 % (42-52); Hemoglobin 14.9 g/dL (14.0-18.0); Lymphocyte % 24.5 %; Mean Corpuscular HGB Conc 34 g/dL (31-36); Mean Corpuscular Hemoglobin 31 pg (27-31); Mean Corpuscular Volume 93 fL (80-94); Mean Platelet Volume 9.6 fL (7.4-10.4); Nucleated Red Blood Cells % 0.2; Platelet Count 156 10^3/uL (150-450); Red Blood Count 4.77 10^6 /uL (4.18-5.48); Red Cell Distribution Width 15 % (10-15); White Blood Count 4.9 10^3/uL (3.5-10.8)
--- NOTE | 2019-08-08 16:32 | ED ---
HPI Cardiac - HPI Summary HPI Summary: Patient is a 69 y/o M w/ Hx of HTN, HLD, MA, cardiac stents and bypass surgery who presents to [facility] with complaints of intermittent left anterior chest pain over the past 2-3 days. He notes that he has been having radiation of his pain to his left arm as well. Currently, the majority of his pain is located at his left arm and is rated a 4/10 in severity. He additionally notes that he has been having a burning sensation to his face that has been intermittently. This sensation is minimal in its severity at present. He additionally notes some weakness that onset this morning and that his BP has been elevated, stating that he measured his BP to be 180/104 at home. No SOB, cough, fever, chills, or sick contacts noted. Patient states that he has gotten a heart catheterization when he presented with similar Sx in the past. Last stress test is reported to have been a few years ago. Patient took his medications around 0700 today, which includes baby ASA 81 mg. No Hx of diabetes noted. He states that he used to drink 3-4 alcoholic beverages daily but stopped 9 days ago. No tremors noted. Patient does not report any fever, chills, erythema of eyes, sore throat , shortness of breath, cough, abdominal pain, nausea/vomiting, dysuria, hematuria, myalgia, edema, rash, or dizziness. Home medications and allergies are reviewed. - History of Current Complaint Chief Complaint: EDChestPainROMI Stated Complaint: CHEST PAIN PER PT Time Seen by Provider: 08/08/19 16:04 Hx Obtained From: Patient Onset/Duration: Started Days Ago Timing: Intermittent Current Severity: Moderate Pain Intensity: 5 Pain Scale Used: 0-10 Numeric Chest Pain Location: Left Anterior Chest Pain Radiates: Yes Chest Pain Radiates To:: Arm Character: Burning - face Associated Signs and Symptoms: Positive: Chest Pain, Other: - does not report any tremors, fever, chills, erythema of eyes, sore throat, shortness of breath, cough, abdominal pain, nausea/vomiting, dysuria, hematuria, myalgia, edema, rash , or dizziness; positive face burning sensation reported. Negative: Dizziness, Shortness of Breath, Swelling, Fever, Chills, Lightheadedness, Nausea, Cough, Productive Cough, Nonproductive Cough, Abdominal Pain, Calf Pain/Swelling, Vomiting, Edema - Additional Pertinent History Primary Care Physician: [id number] - Allergy/Home Medications Allergies/Adverse Reactions: Allergies Allergy/AdvReac Type Severity Reaction Status Date / Time ramipril Allergy Mild Coughing Verified 08/08/19 15:55 KAILA Inhibitors Allergy unk Verified 08/08/19 15:55 metoprolol Allergy unk Verified 08/08/19 15:55 Home Medications: Home Medications Nitroglycerin TAB 0.4 MG* 0.4 mg SL Q5M PRN #0 08/18/13 [History Confirmed 08/07] Potassium Chlor TAB* [Potassium Chlor TAB 20 MEQ*] 20 meq PO BID 08/18/13 [ History Confirmed 08/08/19] Tamsulosin CAP* [Flomax CAP*] 0.4 mg PO DAILY 08/18/13 [History Confirmed ] Zolpidem TAB* [Ambien*] 10 mg PO BEDTIME 08/18/13 [History Confirmed 08/08/19] amLODIPine TAB* [Norvasc 5 mg TAB*] 10 mg PO DAILY 08/18/13 [History Confirmed 08/08/19] Aspirin EC TAB* [Ecotrin EC Low Dose 81 MG*] 81 mg PO DAILY 02/28/16 [History Confirmed 08/08/19] Clindamycin 1% TOPICAL(NF) [Cleocin-T 1% TOPICAL(NF)] 1 % TOPICAL BID 02/28/16 [ History Confirmed 08/08/19] Fluticasone NASAL SPRAY 50MCG* [Flonase NASAL SPRAY 50MCG*] 2 spray BOTH NARES BID 02/28/16 [History Confirmed 08/10/19] Ticagrelor* [Brilinta 90 MG*] 90 mg PO BID 02/28/16 [History Confirmed 08/08/19] Valsartan/HCTZ 320/12.5(NF) [Diovan Hct 320/12.5(NF)] 1 tab PO DAILY 02/28/16 [ History Confirmed 08/08/19] Cimetidine [Tagamet Hb] 200 mg PO BID 08/08/19 [History Confirmed 08/08/19] Cyclobenzaprine TAB* [Flexeril 10 MG TAB*] 10 mg PO TID PRN 08/08/19 [History Confirmed 08/08/19] Docusate CAP* [Colace Cap*] 100 mg PO BID 08/08/19 [History Confirmed 08/08/19] Furosemide TAB* [Lasix TAB*] 20 mg PO DAILY 08/08/19 [History Confirmed 08/08/19 ] HydroCODONE/Acetamin 10/325 NF [[place] 10/325 (NF)] 1 tab PO Q4HR PRN 08/08/19 [ History Confirmed 08/08/19] Nadolol TAB* [Corgard TAB*] 40 mg PO DAILY 08/08/19 [History Confirmed 08/08/19] Rosuvastatin (NF) [Crestor (NF)] 40 mg PO DAILY 08/08/19 [History Confirmed ] PMH/Surg Hx/FS Hx/Imm Hx Endocrine/Hematology History: Denies: Hx Anticoagulant Therapy, Hx Diabetes, Hx Thyroid Disease Cardiovascular History: Reports: Hx Hypercholesterolemia, Hx Hypertension, Hx Myocardial Infarction Denies: Hx Congestive Heart Failure, Hx Deep Vein Thrombosis, Hx Pacemaker/ ICD Respiratory History: Denies: Hx Asthma, Hx Chronic Obstructive Pulmonary Disease (COPD), Hx Lung Cancer, Hx Pneumonia, Hx Pulmonary Embolism GI History: Denies: Hx Gall Bladder Disease, Hx Gastrointestinal Bleed, Hx Ulcer, Hx Urosepsis History: Denies: Hx Kidney Stones, Hx Renal Disease Musculoskeletal History: Reports: Hx Arthritis - spine and rt hip Denies: Hx Rheumatoid Arthritis Sensory History: Denies: Hx Hearing Aid Neurological History: Denies: Hx Dementia, Hx Migraine, Hx Seizures, Hx Transient Ischemic Attacks (TIA) Psychiatric History: Denies: Hx Anxiety, Hx Depression, Hx Panic Disorder, Hx Schizophrenia, Hx Bipolar Disorder, Hx Substance Abuse - Cancer History Cancer Type, Location and Year: PROSTATE CA - Surgical History Surgery Procedure, Year, and Place: sinus surgery x 5 for drainage per pt. Open Heart Double Bypass. MANY STENTS - ONLY HAVE THE NAME OF A COUPLE OF THEM - [facility] - SO AT THIS TIME UNTIL FURTHER INFORMATION IS OBTAINED PT CAN ONLY HAVE MRI ON A 1.5T SCANNER Infectious Disease History: No Infectious Disease History: Denies: Hx Clostridium Difficile, Hx Hepatitis, Hx Human Immunodeficiency Virus (HIV), Hx of Known/Suspected MRSA, Hx Shingles, Hx Tuberculosis, Hx Known/ Suspected VRE, Hx Known/Suspected VRSA, History Other Infectious Disease, Traveled Outside the [place] in Last 30 Days - Family History Known Family History: Positive: Cardiac Disease, Diabetes - Social History Alcohol Use: None Alcohol Amount: quit drinking 9 days ago Hx Substance Use: No Substance Use Type: Reports: None Hx Tobacco Use: No Smoking Status (MU): Former Smoker Type: Cigarettes Length of Time of Smoking/Using Tobacco: 1 PPD, 20+ YR Have You Smoked in the Last Year: No Review of Systems Constitutional: Other - negative - tremors Negative: Fever, Chills Negative: Erythema Negative: Sore Throat Positive: Chest Pain. Negative: Palpitations Negative: Shortness Of Breath, Cough Negative: Abdominal Pain, Vomiting, Nausea Negative: dysuria, hematuria Negative: Myalgia, Edema Positive: Other - positive - face burning sensation . Negative: Rash Neurological/Mental Status: Other - negative - dizziness All Other Systems Reviewed And Are Negative: Yes Physical Exam - Summary Physical Exam Summary: Constitutional: Well-developed, Well-nourished, Alert. (-) Distressed Skin: Warm, Dry HENT: Normocephalic; Atraumatic Eyes: Conjunctiva normal Neck: Musculoskeletal ROM normal neck. (-) JVD, (-) Stridor, (-) Tracheal deviation Cardio: Rhythm regular, rate normal, Heart sounds normal; Intact distal pulses; The pedal pulses are 2+ and symmetric. Radial pulses are 2+ and symmetric. (-) Murmur Pulmonary/Chest wall: Effort normal. (-) Respiratory distress, (-) Wheezes, (-) Rales Abd: Soft, (-) tenderness, (-) Distension, (-) Guarding, (-) Rebound Musculoskeletal: (-) Edema Lymph: (-) Cervical adenopathy Neuro: Alert, Oriented x3 Psych: Mood and affect Normal Triage Information Reviewed: Yes Vital Signs On Initial Exam: Initial Vitals Temp Pulse Resp BP Pulse Ox 98.7 F 76 15 186/104 96 08/08/19 15:55 08/08/19 15:55 08/08/19 15:55 08/08/19 15:55 08/08/19 15:55 Vital Signs Reviewed: Yes Procedures - Sedation Patient Received Moderate/Deep Sedation with Procedure: No Diagnostics - Vital Signs Vital Signs Temp Pulse Resp BP Pulse Ox 08/08/19 16:16 69 17 158/100 97 08/08/19 16:15 74 20 96 08/08/19 15:55 98.7 F 76 15 186/104 96 - Laboratory Result Diagrams: 08/08/19 16:15 08/08/19 16:15 Lab Statement: Any lab studies that have been ordered have been reviewed, and results considered in the medical decision making process. - Radiology CXR Radiology Interpretation Completed By: Radiologist Summary of Radiographic Findings: IMPRESSION: 1. No acute cardiopulmonary process by radiograph. 2. Unchanged cardiomegaly. THIS REPORT WAS REVIEWED BY ED PHYSICIAN. - EKG 1559 Cardiac Rate: NL - RATE OF 70 BPM EKG Rhythm: Sinus Rhythm Summary of EKG Findings: EKG showed NSR with rate of 70 BPM. Inferior Q waves and lateral T-wave inversions noted. Compared to EKG done 07/05/18, the T-wave inversions are new, Q-waves are old. No STEMI noted. ED physician has reviewed and interpreted this EKG. Re-Evaluation - Re-Evaluation First Eval Re-Evaluation Time: 17:10 Comment: Patient states that he has a DUNCAN after the nitro, also states that he developed blurry vision and water eyes bilaterally. DUNCAN is most consistent with nitro administration. Patient is agreeable with admission. Disposition - Course Course Of Treatment: Patient is a 69 y/o M w/ Hx of HTN, HLD, MA, cardiac stents and bypass surgery who presents to [facility] with complaints of intermittent left anterior chest pain over the past 2-3 days. He notes that he has been having radiation of his pain to his left arm as well. Currently, the majority of his pain is located at his left arm and is rated a 4/10 in severity. He additionally notes that he has been having a burning sensation to his face that has been intermittently. This sensation is minimal in its severity at present. He additionally notes some weakness that onset this morning and that his BP has been elevated, stating that he measured his BP to be 180/104 at home. No SOB, cough, fever, chills, or sick contacts noted. Patient states that he has gotten a heart catheterization when he presented with similar Sx in the past. Last stress test is reported to have been a few years ago. Patient took his medications around 0700 today, which includes baby ASA 81 mg. No Hx of diabetes noted. He states that he used to drink 3-4 alcoholic beverages daily but stopped 9 days ago. No tremors noted. Physical exam is unremarkable. During ED course, patient received 162 mg ASA PO and Nitro 0.4 mg SL. EKG showed NSR with rate of 70 BPM. Inferior Q waves and lateral T-wave inversions noted. Compared to EKG done 07/05/18, the T-wave inversions are new, Q-waves are old. No STEMI noted. CXR IMPRESSION: 1. No acute cardiopulmonary process by radiograph. 2. Unchanged cardiomegaly. HEART score of 6 noted. Patient's case was discussed with Dr. Foy, Dr. Foy accepts for admission. Patient states that he has a DUNCAN after the nitro, also states that he developed blurry vision and water eyes bilaterally. DUNCAN is most consistent with nitro administration. Patient is agreeable with admission. - Diagnoses Provider Diagnoses: Unstable angina, Hypertensive urgency - Physician Notifications Discussed Care Of Patient With: Stephanie Foy Time Discussed With Above Provider: 17:07 Instructed by Provider To: Other - Patient's case was discussed with Dr. Foy, Dr. Foy accepts for admission. - Critical Care Time Critical Care Time: 30-74 min - 35 minutes Discharge ED - Sign-Out/Discharge Documenting (check all that apply): Patient Departure - admit - Discharge Plan Condition: Fair Disposition: ADMITTED TO [facility] - Billing Disposition and Condition Condition: FAIR Disposition: Admitted to [facility] - Attestation Statements Document Initiated by Scribe: Yes Documenting Scribe: CINDY EDWARDS Provider For Whom Scribe is Documenting (Include Credential): MARINA ANTHONY MD Scribe Attestation: CINDY Grant, scribed for MARINA ANTHONY MD on 08/11/19 at 2117. Scribe Documentation Reviewed: Yes Provider Attestation: The documentation as recorded by the CINDY ferguson accurately reflects the service I personally performed and the decisions made by , MARINA ANTHONY MD Status of Scribe Document: Viewed
[2019-08-08] MEDS: Nitroglycerin TAB 0.4 MG* 0.4 MG TAB SL ONE ×2 (16:33→16:40)
[2019-08-08 16:42] LABS: Albumin 4.1 g/dL (3.2-5.2); Albumin/Globulin Ratio 1.1 (1-3); Calcium 9.8 mg/dL (8.6-10.3); EGFR African American 82.5 (>60); EGFR Non-African American 68.2 (>60); Globulin 3.8 g/dL (2-4); Potassium 3.5 mmol/L (3.5-5.0); Total Bilirubin 0.6 mg/dL (0.2-1.0); Total Protein 7.9 g/dL (6.4-8.9)
[2019-08-08 16:43] LABS: Troponin I 0.01 ng/mL (<0.03)
[2019-08-08] MEDS ORDERED: Nitro 2% OINT* (Nitroglycerin) 1 INCH/PAK PAK TOPICAL ONE (16:46)
[2019-08-08] MEDS ORDERED: Al Hydrox/Mg Hydrox/Simet LIQ* 30 ML UDC PO PRN (17:08)
[2019-08-08] MEDS ORDERED: Nitroglycerin TAB 0.4 MG* 0.4 MG TAB SL PRN (17:11)
[2019-08-08] MEDS: Acetaminophen TAB* 325 MG PO PRN ×2 (17:29→21:25)
--- NOTE | 2019-08-08 18:42 | HP ---
CC: Dr. Sheridan * HISTORY AND PHYSICAL: DATE OF ADMISSION: 08/08/19 PRIMARY CARE PROVIDER: Dr. Sheridan. CHIEF COMPLAINT: Chest pain. HISTORY OF PRESENT ILLNESS: Mr. Mendoza is a 69-year-old male with history of coronary artery disease, status post coronary artery bypass grafting and as he states approximately 7 stents. The last stent was placed approximately 3 to 4 years ago and he stated that he had multiple cardiac catheterizations. All of his cardiac workup was performed at [facility] in [place], [place]. Today, he came into our hospital with concerns of left-sided axillary pain. The patient stated that he had been having an ache in the left side of his chest, more into the left axilla as well as the left biceps and also some burning sensations in the left face. Those sensations would come and go, occur approximately once a day, last for about an hour. They were not associated with shortness of breath or diaphoresis. The patient lives rather sedentary life and stated that he usually would be "lying around" when those pains would happen. They would resolve spontaneously. The pain was not pleuritic. Today, he got concerned for some reason and checked his blood pressure and it was 180 systolically. He came into the ED for evaluation due to the hypertension. The patient stated that he has bad osteoarthritis in the right hip and he is planned to have right hip surgery in the near future. Due to that, his exercise tolerance is limited, but it has not been changed. So far, his workup in the ED is unremarkable. Unfortunately, we do not have availability to have the patient undergo a cardiac stress test until Sunday and today is Sunday. The patient agrees to stay over the weekend for a stress test on Sunday. I suspect this is going to be a pharmacologic stress test due to his bad osteoarthritis in the right hip. PAST MEDICAL HISTORY: 1. History of prostate cancer, status post radiation. 2. Hypertension. 3. Gastroesophageal reflux disease. 4. Coronary artery disease, status post coronary artery bypass grafting as well as approximately 6 to 7 stents. 5. History of SBO. 6. Dyslipidemia. 7. Degenerative disk disease. 8. Obstructive sleep apnea, not compliant with CPAP. 9. Erectile dysfunction. PAST SURGICAL HISTORY: 1. Status post hernia repair. 2. History of lysis of adhesions. MEDICATIONS AT HOME: Include: 1. Ambien 10 mg at bedtime. 2. Diovan HCT 320/12.5 one tablet daily. 3. Flomax 0.4 mg daily. 4. Crestor 40 mg daily. 5. Potassium chloride 20 mEq b.i.d. 6. Nitroglycerin sublingually on a p.r.n. basis. 7. Nadolol 40 mg daily. 8. Hydrocodone with acetaminophen 10/325 mg every 4 hours p.r.n. 9. Furosemide 20 mg daily. 10. Flonase nasal spray 2 sprays both nostrils daily. 11. Colace 100 mg b.i.d. 12. Flexeril 10 mg 3 times a day p.r.n. 13. Cleocin topical 1 topical b.i.d. p.r.n. 14. Cimetidine 200 mg b.i.d. 15. Amlodipine 10 mg daily. 16. Brilinta 90 mg b.i.d. 17. Aspirin 81 mg daily. ALLERGIES: RAMIPRIL, KAILA INHIBITORS, METOPROLOL. Please note that the patient is tolerating nadolol without any issues. FAMILY HISTORY: Positive for heart disease in both parents. SOCIAL HISTORY: The patient drinks an occasional glass of wine daily. He denies any current tobacco or drug use. 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 She would be his surrogate. He is a full code. REVIEW OF SYSTEMS: Please see history of present illness. All the remaining 12 systems were reviewed and apart from the above-mentioned pertinent positives and negatives were negative. PHYSICAL EXAMINATION GENERAL: The patient is a very pleasant 69-year-old male who is in no acute distress. The patient is alert and oriented x3. VITAL SIGNS: Blood pressure of 152/90, heart rate of 79 and regular, respiratory rate 23, oxygen saturation 95% on room air, temperature of 98.7. HEENT: Head: Atraumatic, normocephalic. Eyes: Pupils are equal, reactive to light and accommodation. Oropharynx is clear. Mucosa moist. NECK: Supple. No JVD. No bruits bilaterally. RESPIRATORY: Clear to auscultation bilaterally. CARDIOVASCULAR: Regular rate and rhythm. No murmur. ABDOMEN: Soft, nontender. Bowel sounds present in all 4 quadrants. EXTREMITIES: There is no edema. Pulses are +2 bilaterally. There is no clubbing bilaterally. NEUROLOGIC: Speech is clear. Cranial nerves II through XII grossly intact. Motor strength is 5/5 bilaterally. DIAGNOSTIC STUDIES/LAB DATA: Laboratory data showed white blood cell count of 4.9, hemoglobin of 14.9, hematocrit of 44, and platelets of 156. Sodium was 137 , potassium 3.5, chloride 102, carbon dioxide 27, BUN 14, creatinine 1.08. Liver function tests unremarkable apart from chronic elevation of alkaline phosphatase, today it was 152. Troponin was 0.01. Portable chest x-ray, impression: "No acute cardiopulmonary process by radiograph. Unchanged cardiomegaly." The patient's EKG showed sinus rhythm with heart rate of 70 beats per minute with flattening of T-waves in V4, V6 as well as inferior leads. Comparing with prior EKG from 07/03/18, those changes are similar. ASSESSMENT AND PLAN: 1. The patient's chest pain is somewhat nonspecific and atypical, but the patient does have high HEART score that is at least 6 or 7. The patient is going to be placed on overnight observation, but unfortunately he needs to stay over the weekend for a cardiac stress test, which is going to be performed on Sunday if his troponins continue to be negative. 2. For his hypertension, I believe this is driven by stress. The patient's blood pressure normalized rapidly after administration of 1 sublingual nitroglycerin. We will continue his outpatient medications and monitor. 3. For the patient's dyslipidemia, rosuvastatin is going to be continued. 4. The patient is at moderate risk of deep venous thrombosis and is going to be placed on heparin subcutaneously. 5. The patient's code status is full. His surrogate is his . TIME SPENT: Approximately 55 minutes was spent on admission of this patient, more than half that time was spent [id number] with the patient during the interview and physical exam. [id number]/[facility] #: [id number] NOAM
[2019-08-08] MEDS: Clindamycin 1% TOPICAL(NF) 60 PAD BOX TOPICAL SCH (20:00)
[2019-08-08] MEDS: Ticagrelor* 90 MG TAB PO SCH (20:03)
[2019-08-08] MEDS: Docusate CAP* 100 MG PO SCH (20:03)
[2019-08-08] MEDS: Potassium Chlor TAB* 20 MEQ TAB.ER PO SCH (20:03)
[2019-08-08] MEDS: Atorvastatin* 80 MG TAB PO SCH (21:25)
[2019-08-08] MEDS: Zolpidem TAB* 10 MG PO SCH (21:25)
[2019-08-08] MEDS: Tamsulosin CAP* 0.4 MG PO SCH (21:26)
[2019-08-08] MEDS: Heparin VIAL(*) 5000 UNITS/ML VIAL (FIVE THOUSAND) SUBCUT SCH (21:29)
[2019-08-09] MEDS: Heparin VIAL(*) 5000 UNITS/ML VIAL (FIVE THOUSAND) SUBCUT SCH ×3 (05:32→20:06)
[2019-08-09] MEDS: Potassium Chlor TAB* 20 MEQ TAB.ER PO SCH ×2 (08:19→20:06)
[2019-08-09] MEDS: amLODIPine TAB* 5 MG PO SCH (08:20)
[2019-08-09] MEDS: Aspirin EC TAB* 81 MG TAB.EC PO SCH (08:20)
[2019-08-09] MEDS: Docusate CAP* 100 MG PO SCH ×2 (08:20→20:06)
[2019-08-09] MEDS: Nadolol TAB* 40 MG PO SCH (08:20)
[2019-08-09] MEDS: Furosemide TAB* 20 MG PO SCH (08:20)
[2019-08-09] MEDS: Ticagrelor* 90 MG TAB PO SCH ×2 (08:21→20:06)
[2019-08-09] MEDS: Valsartan TAB* 160 MG PO SCH (08:21)
[2019-08-09] MEDS: Fluticasone NASAL SPRAY 50MCG* 16 gm SPRAY BTL BOTH NARES SCH (08:21)
[2019-08-09] MEDS: Clindamycin 1% TOPICAL(NF) 60 PAD BOX TOPICAL SCH ×2 (08:24→20:06)
[2019-08-09] MEDS: Hydrochlorothiazide TAB* 25 MG PO SCH (08:26)
--- NOTE | 2019-08-09 08:31 | PN ---
Subjective Date of Service: 08/09/19 Interval History: Pt feels well, denies CP/SOB Objective Active Medications: Acetaminophen (Tylenol Tab*) 650 mg PO Q4H PRN PRN Reason: PAIN-MILD/TEMP >/= 100.4 Last Admin: 08/08/19 21:25 Dose: 650 mg Hydrocodone Bitart/Acetaminophen ([place] 10/325 (Nf)) 1 tab PO Q4HR PRN PRN Reason: PAIN - MODERATE Al Hydrox/Mg Hydrox/Simethicone (Maalox Plus*) 30 ml PO Q6H PRN PRN Reason: INDIGESTION Amlodipine Besylate (Norvasc Tab*) 10 mg PO DAILY [facility] Last Admin: 08/09/19 08:20 Dose: 10 mg Aspirin (Aspirin Ec Tab*) 81 mg PO DAILY [facility] Last Admin: 08/09/19 08:20 Dose: 81 mg Atorvastatin Calcium (Lipitor*) 80 mg PO BEDTIME [facility] Last Admin: 08/08/19 21:25 Dose: 80 mg Clindamycin Phosphate (Cleocin-T 1% Topical(Nf)) 1 applic TOPICAL BID [facility] Last Admin: 08/09/19 08:24 Dose: Not Given Cyclobenzaprine HCl (Flexeril Tab*) 10 mg PO TID PRN PRN Reason: SPASMS - MUSCLE Docusate Sodium (Colace Cap*) 100 mg PO BID [facility] Last Admin: 08/09/19 08:20 Dose: 100 mg Fluticasone Propionate (Flonase Nasal [place] 50mcg*) 2 spray BOTH NARES DAILY [facility] Last Admin: 08/09/19 08:21 Dose: 2 spray Furosemide (Lasix Tab*) 20 mg PO DAILY [facility] Last Admin: 08/09/19 08:20 Dose: 20 mg Heparin Sodium (Porcine) (Heparin Vial(*)) 5,000 units SUBCUT Q8HR [facility] Last Admin: 08/09/19 05:32 Dose: 5,000 units Hydrochlorothiazide (Hydrodiuril Tab*) 12.5 mg PO DAILY [facility] Magnesium Hydroxide (Milk Of Magnesia Liq*) 30 ml PO Q4H PRN PRN Reason: CONSTIPATION Nadolol (Corgard Tab*) 40 mg PO DAILY [facility] Last Admin: 08/09/19 08:20 Dose: 40 mg Nitroglycerin (Nitroglycerin Tab 0.4 Mg*) 0.4 mg SL Q5M PRN PRN Reason: PAIN - CHEST Potassium Chloride (Klor Con Er Tab*) 20 meq PO BID [facility] Last Admin: 08/09/19 08:19 Dose: 20 meq Tamsulosin HCl (Flomax Cap*) 0.4 mg PO BEDTIME [facility] Last Admin: 08/08/19 21:26 Dose: 0.4 mg Ticagrelor (Brilinta*) 90 mg PO BID [facility] Last Admin: 08/09/19 08:21 Dose: 90 mg Valsartan (Diovan Tab*) 320 mg PO DAILY [facility] Last Admin: 08/09/19 08:21 Dose: 320 mg Zolpidem Tartrate (Ambien Tab*) 10 mg PO BEDTIME [facility] Last Admin: 08/08/19 21:25 Dose: 10 mg Vital Signs - 8 hr 08/09/19 08/09/19 03:15 07:15 Temperature 97.0 F 97.6 F Pulse Rate 64 75 Respiratory 16 20 Rate Blood Pressure 139/81 138/94 (mmHg) O2 Sat by Pulse 99 97 Oximetry Oxygen Devices in Use Now: None Appearance: 69 yo M in NAD, aAOx3 Eyes: No Scleral Icterus, PERRLA Ears/Nose/Mouth/Throat: NL Teeth, Lips, Gums, Mucous Membranes Moist Neck: NL Appearance and Movements; NL JVP, Trachea Midline Respiratory: Symmetrical Chest Expansion and Respiratory Effort, Clear to Auscultation Cardiovascular: NL Sounds; No Murmurs; No JVD, RRR Abdominal: NL Sounds; No Tenderness; No Distention Lymphatic: No Cervical Adenopathy Extremities: No Edema, No Clubbing, Cyanosis Skin: No Rash or Ulcers, No Nodules or Sclerosis Neurological: Alert and Oriented x 3, NL Muscle Strength and Tone Result Diagrams: 08/08/19 16:15 08/08/19 16:15 Assess/Plan/Problems-Billing Assessment: 69 M with h/o CAD, CABG and stents presents with CP - Patient Problems (1) Chest pain Comment: Pt's troponins had been negative, CP resolved. Due to high GARCIA score pt will stay for stress test in AM. Has severe OA - likely will need pharmacolgic stress test Cont ASA/Brilinta (2) HTN (hypertension) Comment: controlled, cont outpatient meds: Nadolol, Valsartan, amlodipine (3) DVT prophylaxis Comment: HSQ Status and Disposition: cont OBV
[2019-08-09] MEDS: Magnesium Hydroxide LIQ* 30 ML UDC PO PRN ×2 (14:03→20:15)
[2019-08-09] MEDS: Acetaminophen TAB* 325 MG PO PRN (14:03)
[2019-08-09] MEDS: Tamsulosin CAP* 0.4 MG PO SCH (20:06)
[2019-08-09] MEDS: Atorvastatin* 80 MG TAB PO SCH (20:06)
[2019-08-09] MEDS: Zolpidem TAB* 10 MG PO SCH (20:06)
[2019-08-09] MEDS: Pantoprazole TAB * 40 MG TAB PO SCH (22:32)
[2019-08-10] MEDS: Cyclobenzaprine TAB* 10 MG PO PRN (01:00)
[2019-08-10] MEDS: Acetaminophen TAB* 325 MG PO PRN ×2 (01:01→20:57)
[2019-08-10] MEDS: Heparin VIAL(*) 5000 UNITS/ML VIAL (FIVE THOUSAND) SUBCUT SCH ×3 (04:58→20:52)
[2019-08-10] MEDS: Docusate CAP* 100 MG PO SCH ×2 (08:26→20:52)
[2019-08-10] MEDS: Aspirin EC TAB* 81 MG TAB.EC PO SCH (08:26)
[2019-08-10] MEDS: Furosemide TAB* 20 MG PO SCH (08:26)
[2019-08-10] MEDS: amLODIPine TAB* 5 MG PO SCH (08:26)
[2019-08-10] MEDS: Potassium Chlor TAB* 20 MEQ TAB.ER PO SCH ×2 (08:26→20:50)
[2019-08-10] MEDS: Nadolol TAB* 40 MG PO SCH (08:26)
[2019-08-10] MEDS: Valsartan TAB* 160 MG PO SCH (08:26)
[2019-08-10] MEDS: Pantoprazole TAB * 40 MG TAB PO SCH (08:27)
[2019-08-10] MEDS: Hydrochlorothiazide TAB* 25 MG PO SCH (08:27)
[2019-08-10] MEDS: Ticagrelor* 90 MG TAB PO SCH ×2 (08:30→20:51)
[2019-08-10] MEDS: Fluticasone NASAL SPRAY 50MCG* 16 gm SPRAY BTL BOTH NARES SCH ×2 (08:31→20:50)
[2019-08-10] MEDS: Clindamycin 1% TOPICAL(NF) 60 PAD BOX TOPICAL SCH ×2 (08:33→20:59)
--- NOTE | 2019-08-10 10:00 | PN ---
Subjective Date of Service: 08/10/19 Interval History: Pt had another episode of left side of face burning sensation and left shoulder pain when laying down last night. it never happened when pt was active Objective Active Medications: Acetaminophen (Tylenol Tab*) 650 mg PO Q4H PRN PRN Reason: PAIN-MILD/TEMP >/= 100.4 Last Admin: 08/10/19 01:01 Dose: 650 mg Hydrocodone Bitart/Acetaminophen ([place] 10/325 (Nf)) 1 tab PO Q4HR PRN PRN Reason: PAIN - MODERATE Al Hydrox/Mg Hydrox/Simethicone (Maalox Plus*) 30 ml PO Q6H PRN PRN Reason: INDIGESTION Last Admin: 08/09/19 20:15 Dose: 30 ml Amlodipine Besylate (Norvasc Tab*) 10 mg PO DAILY [facility] Last Admin: 08/10/19 08:26 Dose: 10 mg Aspirin (Aspirin Ec Tab*) 81 mg PO DAILY [facility] Last Admin: 08/10/19 08:26 Dose: 81 mg Atorvastatin Calcium (Lipitor*) 80 mg PO BEDTIME [facility] Last Admin: 08/09/19 20:06 Dose: 80 mg Clindamycin Phosphate (Cleocin-T 1% Topical(Nf)) 1 applic TOPICAL BID [facility] Last Admin: 08/10/19 08:33 Dose: Not Given Cyclobenzaprine HCl (Flexeril Tab*) 10 mg PO TID PRN PRN Reason: SPASMS - MUSCLE Last Admin: 08/10/19 01:00 Dose: 10 mg Docusate Sodium (Colace Cap*) 100 mg PO BID [facility] Last Admin: 08/10/19 08:26 Dose: 100 mg Fluticasone Propionate (Flonase Nasal [place] 50mcg*) 2 spray BOTH NARES DAILY [facility] Last Admin: 08/10/19 08:31 Dose: 2 spray Furosemide (Lasix Tab*) 20 mg PO DAILY [facility] Last Admin: 08/10/19 08:26 Dose: 20 mg Heparin Sodium (Porcine) (Heparin Vial(*)) 5,000 units SUBCUT Q8HR [facility] Last Admin: 08/10/19 04:58 Dose: 5,000 units Hydrochlorothiazide (Hydrodiuril Tab*) 12.5 mg PO DAILY [facility] Last Admin: 08/10/19 08:27 Dose: 12.5 mg Magnesium Hydroxide (Milk Of Magnesia Liq*) 30 ml PO Q4H PRN PRN Reason: CONSTIPATION Last Admin: 08/09/19 20:15 Dose: 30 ml Nadolol (Corgard Tab*) 40 mg PO DAILY [facility] Last Admin: 08/10/19 08:26 Dose: 40 mg Nitroglycerin (Nitroglycerin Tab 0.4 Mg*) 0.4 mg SL Q5M PRN PRN Reason: PAIN - CHEST Pantoprazole Sodium (Protonix Tab*) 40 mg PO DAILY [facility] Last Admin: 08/10/19 08:27 Dose: 40 mg Potassium Chloride (Klor Con Er Tab*) 20 meq PO BID [facility] Last Admin: 08/10/19 08:26 Dose: 20 meq Tamsulosin HCl (Flomax Cap*) 0.4 mg PO BEDTIME [facility] Last Admin: 08/09/19 20:06 Dose: 0.4 mg Ticagrelor (Brilinta*) 90 mg PO BID [facility] Last Admin: 08/10/19 08:30 Dose: 90 mg Valsartan (Diovan Tab*) 320 mg PO DAILY [facility] Last Admin: 08/10/19 08:26 Dose: 320 mg Zolpidem Tartrate (Ambien Tab*) 10 mg PO BEDTIME [facility] Last Admin: 08/09/19 20:06 Dose: Not Given Vital Signs - 8 hr 08/10/19 08/10/19 08/10/19 03:00 03:15 07:15 Temperature 99 F 97.6 F Pulse Rate 63 66 Respiratory 15 14 16 Rate Blood Pressure 130/84 133/87 (mmHg) O2 Sat by Pulse 97 94 Oximetry Oxygen Devices in Use Now: None Appearance: 69 yo M in nAD, aAOx3 Eyes: No Scleral Icterus, PERRLA Ears/Nose/Mouth/Throat: NL Teeth, Lips, Gums, Clear Oropharnyx, Mucous Membranes Moist Neck: NL Appearance and Movements; NL JVP Respiratory: Symmetrical Chest Expansion and Respiratory Effort, Clear to Auscultation Cardiovascular: NL Sounds; No Murmurs; No JVD Abdominal: NL Sounds; No Tenderness; No Distention Lymphatic: No Cervical Adenopathy Extremities: No Edema Skin: No Rash or Ulcers Neurological: Alert and Oriented x 3, NL Muscle Strength and Tone Result Diagrams: 08/08/19 16:15 03/27/20 16:15 Assess/Plan/Problems-Billing Assessment: 69 M with h/o CAD, CABG and stents presents with CP - Patient Problems (1) Chest pain Comment: Pt's troponins had been negative, burning in left face zeeshan pain in left shoulder recurred. Interestingly enough it happens only when pt is lying on leaning back. ? neuropathy, C spine DJD? Due to high GARCIA score pt will stay for stress test in AM. Has severe OA - likely will need pharmacolgic stress test Cont ASA/Brilinta (2) HTN (hypertension) Comment: controlled, cont outpatient meds: Nadolol, Valsartan, amlodipine, HCTZ (3) QT prolongation Comment: noted on EKG on 08/08, will repeat. No meds that could cause it are ordered (4) DVT prophylaxis Comment: HSQ Status and Disposition: cont OBV
[2019-08-10] MEDS: Tamsulosin CAP* 0.4 MG PO SCH (20:51)
[2019-08-10] MEDS: Atorvastatin* 80 MG TAB PO SCH (20:51)
[2019-08-11] MEDS: Zolpidem TAB* 10 MG PO SCH ×2 (00:11→21:52)
[2019-08-11] MEDS: Heparin VIAL(*) 5000 UNITS/ML VIAL (FIVE THOUSAND) SUBCUT SCH ×3 (06:16→21:55)
[2019-08-11] MEDS ORDERED: Regadenoson* 0.4 MG/5 ML SYRINGE ONE (07:53)
[2019-08-11] MEDS: Aspirin EC TAB* 81 MG TAB.EC PO SCH (10:22)
[2019-08-11] MEDS: Pantoprazole TAB * 40 MG TAB PO SCH (10:23)
[2019-08-11] MEDS: Ticagrelor* 90 MG TAB PO SCH ×2 (10:23→21:51)
[2019-08-11] MEDS: Hydrochlorothiazide TAB* 25 MG PO SCH ×2 (10:23→13:38)
[2019-08-11] MEDS: Potassium Chlor TAB* 20 MEQ TAB.ER PO SCH ×2 (10:23→21:51)
[2019-08-11] MEDS: Fluticasone NASAL SPRAY 50MCG* 16 gm SPRAY BTL BOTH NARES SCH ×2 (10:24→21:57)
[2019-08-11] MEDS: Docusate CAP* 100 MG PO SCH ×2 (10:24→21:51)
[2019-08-11] MEDS: Furosemide TAB* 20 MG PO SCH (10:24)
[2019-08-11] MEDS: Clindamycin 1% TOPICAL(NF) 60 PAD BOX TOPICAL SCH ×2 (10:24→21:36)
[2019-08-11] MEDS: Valsartan TAB* 160 MG PO SCH (13:38)
[2019-08-11] MEDS: Nadolol TAB* 40 MG PO SCH (13:38)
[2019-08-11] MEDS: amLODIPine TAB* 5 MG PO SCH (13:39)
[2019-08-11] MEDS: Cyclobenzaprine TAB* 10 MG PO PRN (13:41)
[2019-08-11] MEDS ORDERED: Perflutren Lipid Microsphere* 3 ML VIAL ONE (14:14)
--- NOTE | 2019-08-11 15:25 | ECHO ---
*[facility]* [place] [address] Fax #: [phone] Transthoracic Echocardiogram Patient: Pancho Mendoza : 1950 Study Date: 08/11/2019 Age: 69 Gender: M HR: 67 bpm Height: 73 in /185.4 cm BSA: 2.56 m^2 Weight: 300.4 lb /136.5 kg BMI: 39.7 kg/m^2 *Electrolytic De Scaler: * Phuong Farfan [facility] *Referring Physician: * Stephanie Foy *Reading Physician: * Yann Talley MD Indications: Chest Pain, unspecified. History: Coronary artery disease. Functional status: Not following treatment plan for sleep apnea. Risk factors: No hypertension. Obese. Labs, prior tests, procedures, and surgery: Catheterization. There was a stenosis which was treated with a stent. Coronary artery bypass grafting. Conclusions Summary: - Left ventricle: Systolic function is mildly to moderately reduced. The estimated ejection fraction is 35-40%. Mild diffuse hypokinesis. - Right ventricle: Systolic function is normal. - Mitral valve: There is mild regurgitation. - Aortic valve: There is no evidence of stenosis. There is trace to mild regurgitation. - Ascending aorta: The ascending aorta is moderately dilated. - Pulmonary arteries: Systolic pressure can not be accurately estimated. - Impressions: The study is unchanged since the study of 08/18/2013. Study data: Transthoracic echocardiogram. Procedure: Transthoracic echocardiography was performed. Image quality was poor. Intravenous Definity , 4 mlswas administered. Complete 2D, spectral Doppler, and color flow Doppler. Location: Bedside. Patient status: Inpatient. Patient room number: 431. Comparison is made to the study of 08/18/2013. Rhythm: Normal sinus rhythm with PVC's. Findings Left ventricle: The cavity size is below normal. Wall thickness is moderately increased. Systolic function is mildly to moderately reduced. The estimated ejection fraction is 35-40%. Mild diffuse hypokinesis. Minor regional variations. Doppler parameters are consistent with abnormal left ventricular relaxation (grade 1 diastolic dysfunction). Right ventricle: The cavity size is moderately dilated. Systolic function is normal. Ventricular septum: Postoperative hypokinesis of the interventricular septum is observed. Left atrium: The atrium is mildly dilated. Right atrium: The atrium is normal in size. Mitral valve: The leaflets are mildly thickened. There is no evidence of stenosis. There is mild regurgitation. Aortic valve: The valve is trileaflet. The leaflets are mildly thickened. Thickening, consistent with sclerosis. There is no evidence of stenosis. There is trace to mild regurgitation. Tricuspid valve: The leaflets are normal thickness. There is no evidence of stenosis. There is physiologic regurgitation. Pulmonic valve: Poorly visualized. There is no evidence of stenosis. There is trace regurgitation. Aorta: Aortic root: The aortic root is mildly dilated. Ascending aorta: The ascending aorta is moderately dilated. Aortic arch: The aortic arch is appears normal. Pericardium: A prominent pericardial fat pad is present. There is no significant pericardial effusion. Pulmonary arteries: Poorly visualized. Systolic pressure can not be accurately estimated. Systemic veins: Poorly visualized. Inferior vena cava: The vessel is dilated. Measurements Left ventricle Value Ref Right atrium continued Value Ref ABIGAIL, LAX (L) 3.9 cm 4.2 - 5.8 ML dim, ES, A4C 4.2 cm 2.6 - 4.4 ESD, LAX 2.6 cm 2.5 - 4.0 Estimated RAP 8 mm Hg --------- FS, LAX 32 % 25 - 43 PW, ED, LAX (H) 1.4 cm 0.6 - 1.0 Aortic valve Value Ref FS 32 % 25 - 43 Isela diam, ED 2.2 cm --------- Mid-wall FS 10 % Peak v, S 1.15 m/sec --------- PW, ED (H) 1.4 cm 0.6 - 1.0 VTI, S 21.7 cm --------- E', lat isela, TDI (L) 6.4 cm/sec >=10.0 Mean grad, S 3.0 mm Hg -- ------- E/e', lat isela, 9 Peak grad, S 5.0 mm Hg ----- ---- TDI LVOT/AV, VTI ratio 0.6 --------- E', med isela, TDI (L) 4.9 cm/sec >=7.0 E/e', med isela, 12 Mitral valve Value Ref TDI Peak E 0.59 m/sec --------- E', avg, TDI 5.7 cm/sec Peak A 0.94 m/sec ----- ---- E/e', avg, TDI 10 <=14 Decel time 183 ms -- ------- Peak E/A ratio 0.6 --------- LVOT Value Ref Peak ladonna, S 0.71 m/sec Pulmonic valve Value Ref VTI, S 13.0 cm Peak v, S 0.95 m/sec --------- Mean grad, S 1 mm Hg Peak grad, S 4.0 mm Hg --------- Ventricular septum Value Ref Aortic root Value Ref IVS, ED (H) 1.4 cm 0.6 - 1.0 Root diam 4.0 cm <4.6 Right ventricle Value Ref Ascending aorta Value Ref ABIGAIL, LAX 4.0 cm AAo AP diam, S 4.4 cm --------- ABIGAIL minor ax, A4C (H) 4.3 cm 1.9 - 3.5 mid Aortic arch Value Ref Arch diam 2.5 cm --------- Left atrium Value Ref AP dim, ES (H) 4.70 cm 3.00 - Decending aorta Value Ref 4.00 Anh peak ladonna 0.61 m/sec --------- ML dim, A4C 5.4 cm SI dim, A4C 5.7 cm Inferior vena cava Value Ref Vol/bsa, ES, 1-p 31 ml/m^2 12 - 37 Diam 2.9 cm --------- A4C Vol/bsa, ES, A/L 31 ml/m^2 16 - 34 Right atrium Value Ref SI dim, ES 4.8 cm 3.4 - 5.3 Legend: (L) and (H) sandeep values outside specified reference range. Prepared and electronically signed by Yann Talley MD 08/11/2019 15:24
--- NOTE | 2019-08-11 16:01 | PN ---
Subjective Date of Service: 08/11/19 Interval History: Pt was "OK " when up and about, but started getting left sided neck pain when lying down. Also c/o occasional" dry mouth and watery eyes", that happened in the past, nut "not right now". Denies CP/SOB Objective Active Medications: Acetaminophen (Tylenol Tab*) 650 mg PO Q4H PRN PRN Reason: PAIN-MILD/TEMP >/= 100.4 Last Admin: 08/10/19 20:57 Dose: 650 mg Hydrocodone Bitart/Acetaminophen ([place] 10/325 (Nf)) 1 tab PO Q4HR PRN PRN Reason: PAIN - MODERATE Al Hydrox/Mg Hydrox/Simethicone (Maalox Plus*) 30 ml PO Q6H PRN PRN Reason: INDIGESTION Last Admin: 08/09/19 20:15 Dose: 30 ml Amlodipine Besylate (Norvasc Tab*) 10 mg PO DAILY [facility] Last Admin: 08/11/19 13:39 Dose: 10 mg Aspirin (Aspirin Ec Tab*) 81 mg PO DAILY [facility] Last Admin: 08/11/19 10:22 Dose: 81 mg Atorvastatin Calcium (Lipitor*) 80 mg PO BEDTIME [facility] Last Admin: 08/10/19 20:51 Dose: 80 mg Clindamycin Phosphate (Cleocin-T 1% Topical(Nf)) 1 applic TOPICAL BID [facility] Last Admin: 08/11/19 10:24 Dose: Not Given Cyclobenzaprine HCl (Flexeril Tab*) 10 mg PO TID PRN PRN Reason: SPASMS - MUSCLE Last Admin: 08/11/19 13:41 Dose: 10 mg Docusate Sodium (Colace Cap*) 100 mg PO BID [facility] Last Admin: 08/11/19 10:24 Dose: 100 mg Fluticasone Propionate (Flonase Nasal [place] 50mcg*) 2 spray BOTH NARES BID [facility] Last Admin: 08/11/19 10:24 Dose: 2 spray Furosemide (Lasix Tab*) 20 mg PO DAILY [facility] Last Admin: 08/11/19 10:24 Dose: 20 mg Heparin Sodium (Porcine) (Heparin Vial(*)) 5,000 units SUBCUT Q8HR [facility] Last Admin: 08/11/19 14:36 Dose: 5,000 units Hydrochlorothiazide (Hydrodiuril Tab*) 12.5 mg PO DAILY [facility] Last Admin: 08/11/19 13:38 Dose: 12.5 mg Magnesium Hydroxide (Milk Of Magnesia Liq*) 30 ml PO Q4H PRN PRN Reason: CONSTIPATION Last Admin: 08/09/19 20:15 Dose: 30 ml Nadolol (Corgard Tab*) 40 mg PO DAILY [facility] Last Admin: 08/11/19 13:38 Dose: 40 mg Nitroglycerin (Nitroglycerin Tab 0.4 Mg*) 0.4 mg SL Q5M PRN PRN Reason: PAIN - CHEST Pantoprazole Sodium (Protonix Tab*) 40 mg PO DAILY [facility] Last Admin: 08/11/19 10:23 Dose: 40 mg Potassium Chloride (Klor Con Er Tab*) 20 meq PO BID [facility] Last Admin: 08/11/19 10:23 Dose: 20 meq Tamsulosin HCl (Flomax Cap*) 0.4 mg PO BEDTIME [facility] Last Admin: 08/10/19 20:51 Dose: 0.4 mg Ticagrelor (Brilinta*) 90 mg PO BID [facility] Last Admin: 08/11/19 10:23 Dose: 90 mg Valsartan (Diovan Tab*) 320 mg PO DAILY [facility] Last Admin: 08/11/19 13:38 Dose: 320 mg Zolpidem Tartrate (Ambien Tab*) 10 mg PO BEDTIME [facility] Last Admin: 08/11/19 00:11 Dose: Not Given Vital Signs - 8 hr 08/11/19 08/11/19 08/11/19 13:20 13:41 15:36 Temperature 98.4 F 97.8 F Pulse Rate 66 63 Respiratory 20 18 20 Rate Blood Pressure 132/83 148/90 (mmHg) O2 Sat by Pulse 98 98 Oximetry Oxygen Devices in Use Now: None Appearance: 69 yo M in nAD, aAOx3 Eyes: No Scleral Icterus, PERRLA Ears/Nose/Mouth/Throat: NL Teeth, Lips, Gums, Mucous Membranes Moist Neck: NL Appearance and Movements; NL JVP, Trachea Midline Respiratory: Symmetrical Chest Expansion and Respiratory Effort, Clear to Auscultation Cardiovascular: NL Sounds; No Murmurs; No JVD, RRR Abdominal: NL Sounds; No Tenderness; No Distention Lymphatic: No Cervical Adenopathy Extremities: No Edema, No Clubbing, Cyanosis, - - Charcot ankle deformities b/l Skin: No Rash or Ulcers Neurological: Alert and Oriented x 3, NL Muscle Strength and Tone Result Diagrams: 08/08/19 16:15 08/08/19 16:15 Assess/Plan/Problems-Billing Assessment: 69 M with h/o CAD, CABG and stents presents with CP - Patient Problems (1) Chest pain Comment: Pt's troponins had been negative, burning in left face and pain in left shoulder recurred. Interestingly enough it happens only when pt is lying on leaning back-suspect neck DJD or OA of shoulder. Pharmacolgic stress test not fully completed today, but prelim results are EF 31 % and high risk. Asked DR. Talley to see pt after completion of stress tomorrow. Also will obtain med records from [facility] and Dr. Sheridan's office Cont ASA/Brilinta (2) HTN (hypertension) Comment: controlled, cont outpatient meds: Nadolol, Valsartan, amlodipine, HCTZ (3) QT prolongation Comment: noted on EKG on 08/08, improved on 08/09. No meds that could cause it are ordered (4) DVT prophylaxis Comment: HSQ Status and Disposition: cont OBV
[2019-08-11] MEDS: Hydrocodone/Acetamin 10/325 MG 1 TAB PO PRN ×2 (16:51→21:50)
[2019-08-11] MEDS: Tamsulosin CAP* 0.4 MG PO SCH (21:51)
[2019-08-11] MEDS: Atorvastatin* 80 MG TAB PO SCH (21:51)
[2019-08-12] MEDS: Cyclobenzaprine TAB* 10 MG PO PRN (02:43)
[2019-08-12] MEDS: Hydrocodone/Acetamin 10/325 MG 1 TAB PO PRN (02:44)
[2019-08-12] MEDS: Heparin VIAL(*) 5000 UNITS/ML VIAL (FIVE THOUSAND) SUBCUT SCH (06:10)
[2019-08-12 08:32] VITALS: BP 129/90
[2019-08-12] MEDS: Clindamycin 1% TOPICAL(NF) 60 PAD BOX TOPICAL SCH (09:08)
[2019-08-12] MEDS: Hydrochlorothiazide TAB* 25 MG PO SCH (09:17)
[2019-08-12] MEDS: Furosemide TAB* 20 MG PO SCH (09:17)
[2019-08-12] MEDS: Potassium Chlor TAB* 20 MEQ TAB.ER PO SCH (09:17)
[2019-08-12] MEDS: Valsartan TAB* 160 MG PO SCH (09:17)
[2019-08-12] MEDS: Docusate CAP* 100 MG PO SCH (09:17)
[2019-08-12] MEDS: Fluticasone NASAL SPRAY 50MCG* 16 gm SPRAY BTL BOTH NARES SCH (09:17)
[2019-08-12] MEDS: amLODIPine TAB* 5 MG PO SCH (09:17)
[2019-08-12] MEDS: Ticagrelor* 90 MG TAB PO SCH (09:17)
[2019-08-12] MEDS: Aspirin EC TAB* 81 MG TAB.EC PO SCH (09:17)
[2019-08-12] MEDS: Nadolol TAB* 40 MG PO SCH (09:17)
[2019-08-12] MEDS: Pantoprazole TAB * 40 MG TAB PO SCH (09:17)
--- NOTE | 2019-08-12 13:42 | CONS ---
CC: Dr. Sheridan; Dr. Yoon, [facility] CARDIOLOGY CONSULTATION DATE OF CONSULT: 08/12/2019. INDICATION FOR CONSULTATION: Chest pain, coronary artery disease. HISTORY OF PRESENT ILLNESS: The patient is a 69-year-old gentleman with a history of coronary artery disease, history of coronary artery bypass surgery with a single vessel DENNIS to his LAD, and history of stenting to his right coronary artery. The patient's last cardiac catheterization was in 2013 an d he had multiple stents to his right coronary artery placed at that time. The patient came to the [facility] on August 09 because of left-sided chest aching. His left biceps had a burning sensation an d he also had a discomfort on the left side of his face. The patient's initial EKG demonstrated norm al sinus rhythm with T-wave flattening, no ST segment elevation or depression. His initial troponin level was 0.01. He ruled out for a myocardial infarction. During his hospitalization, the patient u nderwent an echocardiogram and a nuclear stress test. The patient's chemical nuclear stress test showed a large area of infarct to this inferior, inferolat eral, and inferoapical cohen. There was no evidence of ischemia. The ejection fraction was calculat ed at 36 percent. The patient did undergo an echocardiogram which demonstrated a moderately reduced LV systolic functio n, ejection fraction of 35 to 40 percent. There was diffuse hypokinesis with more significant hypoki nesis in the inferior wall. No significant valvular abnormalities. He had mild mitral regurgitation . He had a moderately dilated ascending aorta. In speaking with the patient today, he has no complaints. PAST MEDICAL HISTORY: Significant for prostate cancer, status post radiation, hypertension, coronary artery disease as described above, sleep apnea, degenerative disk disease. PAST SURGICAL HISTORY: Coronary bypass surgery, hernia repair, abdominal surgery with lysis of adhes ions. OUTPATIENT MEDICATIONS: 1. Amlodipine 10 mg a day. 2. Ambien 10 mg at bedtime. 3. Flomax 0.4 mg a day. 4. Potassium 20 mEq twice a day. 5. Brilinta 90 mg b.i.d. 6. Valsartan/Hydrochlorothiazide 320 mg/12.5 mg a day. 7. Aspirin 81 mg a day. 8. Crestor 40 mg a day. 9. Corgard 40 mg a day. 10. Tagamet 200 mg b.i.d. 11. Lasix 20 mg a day. ALLERGIES: RAMIPRIL, KAILA INHIBITORS, METOPROLOL. FAMILY HISTORY: Both mother and father had a history of early coronary artery disease. SOCIAL HISTORY: Patient is . He lives with his . 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 Occ asional wine on a daily basis. Denies tobacco or illicit drug use. REVIEW OF SYSTEMS: Negative for fevers and chills. Negative for changes in bowel or bladder. Negat anne for change in weight. Other 12 point review is unremarkable. PHYSICAL EXAM: Vital Signs: Height 6'1", weigh 301 pounds. Temperature 97.6, heart rate 64, blood pressure 129/90, respiratory rate 18, oxygen saturation 97 percent on room air. HEENT: Sclerae anic teric. Oropharynx is pink without erythema. Carotids are 2+ without bruits. JVD is normal. Thyroi d is normal. Cardiac Exam: S1, S2 without any murmurs, rubs or gallops. PMI is normal. Lungs: Ines r to auscultation bilaterally. There is no dullness to percussion. Abdomen: Obese, soft, nontender, nondistended with normoactive bowel sounds. Extremities: Show 1+ edema. He has 2+ pulses throughou t. The patient is awake, alert, and oriented. He moves all four extremities equally. DIAGNOSTIC STUDIES/LAB DATA: Chemistry is within normal limits. AST and ALT are normal. Troponins are negative times three. CBC within normal limits. IMPRESSION: This is a 69-year-old gentleman with a history of coronary artery disease who was admitt ed to the hospital with chest pain. The patient's cardiac evaluation is stable. The patient does hinkle ve a history of coronary artery disease, history of multiple stenting to his right coronary artery, h istory of DENNIS to his LAD. At this point, I think the patient's cardiac status is stable. I am not convinced that his chest eva n on admission was cardiac in origin. The patient is on appropriate medications. The patient will follow-up with Dr. Yoon for his ongoing cardiac care. [id number]/[facility] #: [id number]
--- NOTE | 2019-08-12 16:02 | DS ---
CC: Dr. Sheridan; Dr. Yoon * DATE OF ADMISSION: 08/08/2019. DATE OF DISCHARGE: 08/12/2019. PRIMARY CARE PHYSICIAN: Dr. Sheridan. STEP FINISHER: Dr. Yoon. PRINCIPAL DIAGNOSIS: Atypical chest pain. SECONDARY DIAGNOSES: 1. Coronary artery disease. 2. Hypertension. 3. GERD. 4. Dyslipidemia. 5. Degenerative disk disease. 6. LORIE. 7. History of prostate cancer, status post radiation therapy. 8. Erectile dysfunction. DISCHARGE MEDICATIONS: 1. Amlodipine 10 mg p.o. daily. 2. Aspirin 81 mg p.o. daily. 3. Cimetidine 200 mg p.o. b.i.d. 4. Clindamycin topical 1% topical b.i.d. 5. Flexeril 10 mg p.o. t.i.d. prn spasm. 6. Colace 100 mg p.o. b.i.d. 7. Flonase two squirts both nostrils twice daily. 8. Lasix 20 mg p.o. daily. 9. [place] 10/325 one tab p.o. q.4 hours prn pain. 10. Nadolol 40 mg p.o. daily. 11. Nitroglycerin 0.4 mg SL q.5 minutes prn chest pain. 12. Potassium 20 mEq p.o. b.i.d. 13. Crestor 40 mg p.o. daily. 14. Flomax 0.4 mg p.o. daily. 15. Brilinta 90 mg p.o. b.i.d. 16. Diovan HCT 320/12.5 one tab p.o. daily. 17. Ambien 10 mg p.o. at bedtime. HOSPITAL COURSE: Mr. Mendoza is a 69-year-old male with known history of coronary artery disease who presented to the emergency room on 08/08/2019 with complaints of chest pain. The patient described the chest discomfort as an ache in the left side of his chest and into the left axilla, as well as the left biceps and a burning sensation on the left face. The sensations reportedly would come and go, occurring approximately once a day, lasting for about an hour. They would resolve on their own. Due to the patient's high heart score, the decision was made to admit him to the hospital under observation status to be ruled out for acute coronary syndrome. The patient did rule out for ACS with negative troponins and EKG's. He underwent stress test on August 10 and August [address] Talley, who saw the patient in brief consultation, was reportedly unchanged from his last stress test in 2015. At this point, it is felt that the patient is stable for discharge home. He has been up and walking without any recurrence of the chest discomfort. He denies any shortness of breath. On the day of discharge, the patient is awake, alert and oriented, sitting up in bed in no acute distress. Cardiac exam reveals a normal S1, S2 with a regular rate and rhythm. The lungs are clear. The abdomen is soft, nontender, nondistended. FOLLOW-UP CONCERNS: The patient is being discharged home today, 08/12/2019. ACTIVITY LEVEL: As tolerated. DIET: Heart-healthy. CONDITION ON DISCHARGE: Stable. TIME SEEN: Twenty-five minutes were spent discharging this patient. [id number]/[facility] #: [id number] NOAM
== END 2019-08-12 10:59 | disposition home or self-care (01) | DRG 313 ==
LOC: ED 15:50 → MEDTELE 17:08 → OBSVTOIN 08-10 14:02
PROVIDERS: ADMIT Internal Medicine; ATTEND Hospitalist
DX: R07.89 Other chest pain (principal); I25.10 Atherosclerotic heart disease of native coronary artery without angina pectoris; I10 Essential (primary) hypertension; K21.9 Gastro-esophageal reflux disease without esophagitis; E78.5 Hyperlipidemia, unspecified; M51.36 Other intervertebral disc degeneration, lumbar region; G47.33 Obstructive sleep apnea (adult) (pediatric); M16.11 Unilateral primary osteoarthritis, right hip; R94.31 Abnormal electrocardiogram [ECG] [EKG]; N52.9 Male erectile dysfunction, unspecified; Z85.46 Personal history of malignant neoplasm of prostate; Z92.3 Personal history of irradiation; Z95.1 Presence of aortocoronary bypass graft; Z95.5 Presence of coronary angioplasty implant and graft; Z79.82 Long term (current) use of aspirin; Z79.899 Other long term (current) drug therapy; Z88.8 Allergy status to other drugs, medicaments and biological substances; Z82.49 Family history of ischemic heart disease and other diseases of the circulatory system
CPT/HCPCS: 36415; 71045; 78452; 80053; 83605; 84484; 85025; 93005; 93017; 93306; 99285; A9270-GY; A9502; C8929; G0378; J1644; J2785